=== PATIENT | female | born 1985 | race African-American/Black ===

== ENCOUNTER 2024-10-20 11:56 | Outpatient (REF) | payer OTHER, SELFPAY ==
[2024-10-20 13:12] LABS: MANUAL DIFF FLAG NO
[2024-10-20 13:16] LABS: Basophils Percent Auto 0.6 % (0-2); Eosinophils Absolute Auto 0.1 X10*3/uL (0.0-0.4); Eosinophils Percent Auto 1.1 % (0-4); Hematocrit 37.7 % (37.0-47.0); Hemoglobin 12.1 g/dl (12.0-16.0); Lymphocytes Absolute Auto 2.3 X10*3/uL (1.2-4.9); Lymphocytes Percent Auto 44.3 % (20-40); Mean Corpuscular HGB Conc 32.1 g/dl (31.0-35.0); Mean Corpuscular Hemoglobin 28.7 pg (27.0-33.0); Mean Corpuscular Volume 89.5 fL (80.0-98.0); Mean Platelet Volume 9.3 fL (9.4-12.3); Monocytes Absolute Auto 0.5 X10*3/uL (0.1-1.2); Monocytes Percent Auto 8.7 % (2-11); Neutrophils Absolute Auto 2.4 x10*3/uL (2.0-8.3); Neutrophils Percent Auto 45.3 % (45-73); Platelet Count 315 X10*3/uL (160-400); Red Blood Count 4.21 X10*6/uL (4.20-5.50); Red Cell Distribution Width 13.8 % (11.0-16.0); White Blood Count 5.3 X10*3/uL (4.8-10.8)
[2024-10-20 13:21] LABS: Estimated Average Glucose 103 mg/dL; Hemoglobin A1c % 5.2 % (<6.0)
[2024-10-20 13:36] LABS: Alanine Aminotransferase 14 U/L (0-31); Albumin Level 4.1 g/dL (3.5-5.0); Alkaline Phosphatase 50 U/L (39-117); Anion Gap 11 (12-20); Aspartate Amino Transferase 30 U/L (5-31); Bilirubin Total 0.3 mg/dL (0.0-1.0); Blood Urea Nitrogen 7 mg/dL (9-16); Calcium 8.9 mg/dL (8.4-10.2); Carbon Dioxide 27 mmol/L (22-29); Chloride 105 mmol/L (96-108); Cholesterol 165 mg/dL (<200); Estimated Glomerular Filt Rate > 60; Glucose Random 83 mg/dL (60-115); HDL Cholesterol 48 mg/dL (>40); LDL Cholesterol Calculated 102 mg/dL (<100); Potassium 4.2 mmol/L (3.3-5.1); Sodium 139 mmol/L (135-145); Total Protein 7.5 g/dL (6.5-8.0); Triglycerides 76 mg/dL (<150)
--- OUTSIDE RECORDS SUMMARY | 2024-10-20 13:39 | XMS_ITS | Clinical Summary ---
Author Organization [employer] Address [address] [place] [address] Care Team Providers Care Line Server Name Role Phone Unavailable Primary Care Provider Unavailabl e Allergies No known active allergies Medications loratadine (CLARITIN) 10 mg tabletIndicatio ns:Allergic Rhinitis Take 10 mg by mouth as needed for allergies (allergic rhinitis) Indications: inflammation of the nose due to an allergy Active Active Problems Problem Noted Date Diagnosed Date with 30 completed weeks gestation 10/2021 Overview (11/08/2021): Supervision of Normal O = ordered, X = completed, / = N/A Late transfer of care from [facility] [x] Intake labs reviewed by: Date: Rh status: (add to problem list if negative) Missing labs: Abnormal labs: [x] Intake BMI: (add to problem list if >=30) [x] PAP - as per outside records [o] Anatomy Scan [x] 2 hour GTT (24-28wks) at outside clinic [x] Tdap vaccination (27-36wks) [x] 3rd trimester (28-32 weeks) CBC, HIV, RPR, GC/CT [ ] Kick counts / PTB counseling (28-32wks) [ ] WIC referral provided [ ] GBS (36wks) [ ] GBS Bacteriuria [ ] PCN allergic [Y/N] [o] Presentation Check/Growth US (34-36wk) [ ] Feeding: [ ] breast pump script [ ] control counseling [ ] Method selected: If desires BTL: [ ] [place] consent signed (28-32wks) [x] Delivery Plan: vaginal delivery [ ] Testing (if indicated) Assessment & Plan (11/08/2021 5:51 PM EDT): Labor precautions given. Labs reviewed. Tdap given. CBC, T&S, HIV, HepBs Ag, HepC Ab, COVID Ab labs ordered. Anatomy scan ordered. BCM discussed and patient is considering OCPs vs IUD, however concerned about IUD given hx of recurrent yeast infections. Patient reports hx of abnormal pap smears. Refer to separate problem. Obesity with body mass index (BMI) of 35.0 to 39.9 without comorbidity 11/08/2021 Vaginal yeast infection 11/08/2021 Overview (11/08/2021): Patient reports hx of recurrent maxine infections. Currently taking clotrimazole PO, which relieves symptoms for about 1 month. Patient reports this is well- controlled prior to past and symptoms are tolerable. F/u symptoms next visit. Abnormal Pap smear of cervix 11/08/2021 Overview (11/08/2021): Prior hx of abnormal pap (<1yr) that resulted ASCUS, other HPV pos. F/u colposcopy negative. Most recent pap pap 09/14/21, ASCUS, other HPV pos. Given ASCCP guidelines, 1 year f/u (due 09/2022). Assessment & Plan (11/08/2021 5:57 PM EDT): Prior hx of abnormal pap (<1yr) that resulted ASCUS, other HPV pos. F/u colposcopy negative. Most recent pap pap 09/14/21, ASCUS, other HPV pos. Given ASCCP guidelines, 1 year f/u (due 09/2022). Immunizations Immunization Administration Dates Next Due Flulaval,Fluarix,Fluzone Miguel d 6mons+ Preserv Free 02/18/2023,04/09/2022,02/06/2021 Tdap 11/08/2021 Social History Tobacco Use Types Packs/Day Years Used Date Smoking Tobacco: Never Assessed Food Insecurity Answer Date Recorded In the last 12 months, did y ou worry that your food could run out before you got money to buy more? No 11/08/2021 Transportation Answer Date Recorded In the last 3 months, has la ck of transportation kept you from medical appointments or getting your medications? No 10/2021 Legal Answer Date Recorded Do you need legal help? (chi ld/family services, immigration, housing discrimination, domestic issues, etc)? No 022 Violence Answer Date Recorded Does anyone in your life shanta t you, threaten you, frighten you or make you feel unsafe? No 11/08/2021 Caring for Others Answer Date Recorded Do you need help getting chi ld care or care for an elderly or sick adult? No 11/08/2021 Financial Resource Strain Answer Date R ecorded In the last 3 months, did yo u have to skip buying medications or going to doctor's appointments to save money? No 11/09/19 22 Utilities Answer Date Recorded In the last 3 months, has th e [employer], gas, oil or water company threatened to shut off services to your home? No 11/08/2021 Housing Stability Answer Date Recorded Are you worried that in the next 2 months, you may not have a safe or stable place to live? (eviction, being kicked out, homelessness) No 11/08/2021 Housing Adequacy Answer Date Recorded Are you worried that the lalit ce you are living now is making you sick? (has mold, bugs/rodents, water leaks, not enough heat) No 11/08/2021 Comments No Sex and Gender Information Value Date Recorded Sex Assigned at Female 07/03/2023 12:13 PM EST Legal Sex Female 1:04 PM EDT Gender Identity Female 07/03/2023 12:13 PM EST Sexual Orientation Straight 07/03/2023 12 :13 PM EST Last Filed Vital Signs Vital Sign Reading Time Taken Comments Blood Pressure 123/68 11/08/2021 1:27 PM EDT Pulse 93 11/08/2021 1:27 PM EDT Temperature 37 ??C (98.6 ??F) 11/08/2021 1:27 PM EDT Respiratory Rate - - Oxygen Saturation 100% 11/08/2021 1:27 PM EDT Inhaled Oxygen Concentration - - Weight 108 kg (238 lb) 09/02/2023 8:50 AM EDT Height 175.3 cm (5' 9 ) 09/02/2023 8:50 AM EDT Body Mass Index 35.15 09/02/2023 8:50 AM EDT Plan of Treatment Health Maintenance Due Date Last Done Comments Advance Directive Discussion 2005 Hepatitis B Vaccines (1 of 3 - 19+ 3-dose series) 2006 PAP SMEAR 2008 COVID-19 Vaccine (4 - season) 2024 02/01/2021, 05/13/2020, 04/22/2020 Influenza Vaccine (#1) 2024 3, 04/09/2022, 02/06/2021, Additional history exists DTaP/Tdap/Td Vaccines (2 - Td or Tdap) 11/09/2031 11/08/2021 Zoster Vaccine (1 of 2) 2037 HPV Vaccines Completed 05/21/2019, 10/04, 09/03/2018 HIB Vaccines Aged Out No longer eligi ble based on patient's age to complete this topic Hepatitis A Vaccines Aged Out No long er eligible based on patient's age to complete this topic IPV/Polio Vaccines Aged Out No longer eligible based on patient's age to complete this topic Meningococcal Vaccine Aged Out No erwin darlene eligible based on patient's age to complete this topic Pneumococcal Vaccine Age 0-49 Aged Out No longer eligible based on patient's age to complete this topic
[2024-10-20 13:52] LABS: HCG Quantitative < 2 mIU/mL; Vitamin D 25-OH Total 40.9 ng/mL (>30)
== END 2024-10-20 11:57 | disposition home or self-care (01) ==
LOC: HO.10HDL 11:56
PROVIDERS: Visit Provider Student in an Organized Health Care Education/Training Program
DX: O99.011 Anemia complicating pregnancy, first trimester (principal); D64.9 Anemia, unspecified; O09.521 Supervision of elderly multigravida, first trimester; Z3A.00 Weeks of gestation of pregnancy not specified; Z13.1 Encounter for screening for diabetes mellitus; Z13.220 Encounter for screening for lipoid disorders
CPT/HCPCS: 36415; 80053; 80061; 82306; 83036; 84702; 85025

== ENCOUNTER 2024-11-18 08:30 | Outpatient (REF) | payer OTHER, SELFPAY ==
--- NOTE | ~2024-11-18 | XR_ITS ---
EXAMINATION: XR SACROILIAC JOINTS CLINICAL INFORMATION: M54.50 - Low back pain, unspecified COMPARISON: None available. TECHNIQUE: AP and oblique views sacroiliac joints. FINDINGS: No acute cortical disruption. No lytic or blastic lesions. XR/XR sacroiliac joint 1-2V IMPRESSION: Normal x-ray. Electronically signed by: John Whittaker MD 11/18/2024 09:10 AM EDT
--- NOTE | ~2024-11-18 | XR_ITS ---
EXAMINATION: XR LUMBOSACRAL SPINE CLINICAL INFORMATION: M54.50 - Low back pain, unspecified COMPARISON: None available. TECHNIQUE: AP and lateral views. FINDINGS: No acute cortical disruption or malalignment. Small marginal osteophyte formation and endplate sclerosis at L4-5 and L5-S1. No lytic or blastic lesions Questionable calcifications overlapping the kidney shadows. XR/XR lumbar spine 2-3V IMPRESSION: Spondylosis L4-5 and L5-S1, mild. Electronically signed by: John Whittaker MD 11/18/2024 09:09 AM EDT
--- OUTSIDE RECORDS SUMMARY | 2024-11-18 08:35 | XMS_ITS | Clinical Summary ---
Author Organization [employer] Address [address] [place] [address] Care Team Providers Care Telesales Agent Name Role Phone Unavailable Primary Care Provider [...] = N/A Late transfer of care from [facility] [x] Intake labs reviewed by: Date: Rh [...] the last 3 months, has th e [employer], gas, oil or water company threatened to [...] 93 11/08/2021 1:27 PM EDT Temperature 37 C (98.6 F) 11/08/2021 1:27 PM EDT Respiratory Rate - [...] series) 2006 PAP SMEAR 2008 COVID-19 Vaccine ( - season) 2024 02/01/2021, 05/13/2020, 04/22/2020 Influenza Vaccine (Season Ended) 2025 02/18/2023, 04/09/2022, 02/06/2021, Additional history exists DTaP/Tdap/Td Vaccines [...]
== END 2024-11-18 08:31 | disposition home or self-care (01) ==
LOC: HO.XRAY 08:30
PROVIDERS: Visit Provider Student in an Organized Health Care Education/Training Program
DX: M54.50 Low back pain, unspecified (principal)
CPT/HCPCS: 72100; 72200

== ENCOUNTER → 2024-11-18 08:33 | Outpatient (BNV) | payer OTHER, SELFPAY | PROVIDERS: Visit Provider Radiology Diagnostic Radiology | DX: M47.816 Spondylosis without myelopathy or radiculopathy, lumbar region (principal); M54.50 Low back pain, unspecified | CPT/HCPCS: 72100; 72200 ==

== ENCOUNTER 2024-11-23 08:34 | Emergency (ER) | payer OTHER, SELFPAY ==
[2024-11-23 08:59] VITALS: BP 110/79; PULSE 65; RESP 18; TEMP 36.8; O2SAT 99; BMI 36.9
--- OUTSIDE RECORDS SUMMARY | 2024-11-23 09:00 | XMS_ITS | Clinical Summary ---
Author Organization [employer] Address [address] [place] [address] Care Team Providers Care Website Optimization Strategist Name Role Phone Unavailable Primary Care Provider [...] = N/A Late transfer of care from [facility] [x] Intake labs reviewed by: Date: Rh [...] the last 3 months, has th e [employer], gas, oil or water company threatened to [...] 2024 02/01/2021, 05/13/2020, 04/22/2020 Influenza Vaccine (#1) 2025 3, 04/09/2022, 02/06/2021, Additional history exists DTaP/Tdap/Td [...]
--- OUTSIDE RECORDS SUMMARY | 2024-11-23 09:00 | XMS_ITS | Encounter Summary ---
Author Organization [facility] Address [address] [place] [address] Care Team Providers Care Molecular Spectroscopist Name Role Phone Marychuy Soto MD Primary Care Provider [phone] Encounter Details Date Type Department Care Team (Late st Contact Info) Description 10/10/2021 Scanned Documents [facility] Physician [facility] External Scan [address] [place] [id number] Scanned, Document Social History Tobacco Use Types Packs/Day Years Used Date Smoking Tobacco: Never Smokeless Tobacco: Never Snuff Alcohol Use Standard Drinks/Week Comments Yes 0 (1 standard drink = 0.6 oz pur e alcohol) social Comments Yes Sex and Gender Information Value Date Recorded Sex Assigned at Female 11/04/2019 3:46 PM EDT Legal Sex Female 7:59 AM EDT Gender Identity Female 11/04/2019 3:46 PM EDT Sexual Orientation Straight or Heterosexual 06/06 10:06 AM EST documented as of this encounter Plan of Treatment Not on file documented as of this encounter Procedures Procedure Name Priority Date/Time Associated Diagnosis Comments M BASIC ULTRASOUND STUDIES 10/10/2021 9:31 AM EDT documented in this encounter Results * M BASIC ULTRASOUND STUDIES (10/10/2021 9:31 AM EDT) us Document Scanned OB R4 US ORDERABLES Final Resul t documented in this encounter Visit Diagnoses Not on filedocumented in this encounter Additional Health Concerns Infection Onset Date Last Indicated Resolved Time Covid-19 Screening 01/14/2022 01/14/2022 12:14 AM EDT documented as of this encounter Care Teams Molecular Spectroscopist Relationship Specialty Start Date End Date Marychuy Soto MD [address] [place] [id number] PCP - General Internal Medicine 03/14/20 documented as of this encounter
[2024-11-23 09:03] VITALS: BP 110/79; PULSE 65; RESP 18; TEMP 36.8; O2SAT 99
--- NOTE | 2024-11-23 09:30 | ED.BACK ---
HPI - Back Pain/Injury General Chief Complaint: Weakness Stated Complaint: Back pain with weakness on both leg Time Seen by Provider: 11/23/24 09:07 Source: patient Mode of arrival: ambulatory Limitations: no limitations History of Present Illness ED Provider: Karey Bey PA-C HPI Narrative: Patient presents to the emergency department today for evaluation of low back pain. Past medical history significant for subjective nontraumatic back pain intermittently. Patient states in the past she has just woken up his back pain it only lasted for a few days and resolved on itself however over these last 2 weeks it has not. She reports just waking up 1 day and feeling pain in her right low back side. It was a dull onset which was only really worse when waking up in the morning and when changing positions but now it feels like it is mixed all day. It is especially worse after lying down and getting up in the morning when sitting for too long and with changing positions. It feels best when she walks and does gentle stretching. She denies any falls or trauma.Patient denies personal history of cancer, IVDU, fevers, chills, night sweats, unintentional wt loss, saddle anesthesia, and change/loss in bladder/ bowel function. Patient treated this with Tylenol and Motrin and heat which helped at 1st however over the last several days the quality of the pain has changed she reports feeling some weakness in her right lower extremity for the last 2 days in her L5 distribution. 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 She is denying any urinary symptoms and colicky pain or abdominal discomfort no nausea no vomiting no fevers no chills. Her legs have not given out on her in any way. Patient has a history of piriformis on her left side in the past. 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 Patient states that she spent several times the day during the day doing the stretches but it only felt like it made it worse. She is denying any change in sensation. She sought medical attention at the ED today for concern of potential neurovascular compromise. She has already had an outpatient L-spine which was unremarkable. MD elicited complaint: back pain Related Data Allergies Allergy/AdvReac Type Severity Reaction Status Date / Time No Known Allergies Allergy Verified 11/23/24 09:02 Review of Systems Review of Systems: Yes all other systems are reviewed and are negative [facility] Past Medical History Attestation statement: The following information was validated with the patient. Source: old records reviewed, nursing notes reviewed and other (Reviewed outpatient SI joint and lumbar spine x-ray from 11/18/2024) Social History Social History Alcohol intake: current Smoked in Last 30 Days: No Use of substances other than those prescribed or required for medical reasons: No Advance Directives: No Advance Directives Information Provided: Yes Do you have a plan to hurt others: No Plan Patient : No Physical Exam Exam: Exam: General: Appears in no acute distress, appears well nourished body habitus is obese, appears stated age. No septic or ill-appearing. Vitals reviewed normal, PMH/Social and Surgical hx reviewed including allergies and current medications. - reviewed for prior visits here Head: Normocephalic, no obvious trauma or skin lesions noted. Eyes: EOMI ENMT: moist oral mucosa Neck: trachea midline Cardiovascular: peripheral perfusion normal, Regular heart rate regular rhythm Respiratory: no respiratory distress nontender chest wall Abdomen: nondistended Extremities: warm and moving without difficulty Psych: Cooperative MS: Negative straight leg raise bilaterally sensation fully intact strength is 4+ throughout no sciatic notch or GT tenderness bilaterally. Right lumbar paraspinous region mildly tender to palpation especially in the L4 region but no step-offs deformities of the entire spine are otherwise midline tenderness. Range of motion is limited of the lumbar spine. Extension is approximately 5 degrees lumbar flexion is full but pain with going from a flexed or extended position especially when she is at the 30 degree judith of flexion, both trunk rotation as well as lumbar lateral flexion limited both ways to only 10 degrees reproducing pain in the right lumbar paraspinous region, DTRs fully intact compartments are soft cap refill less than 3 seconds. Pulses 2+ Neuro: Alert and oriented. Vital Signs: Vital Signs: Last Vital Signs Temp 98.3 F 11/23/24 09:03 Pulse 65 11/23/24 09:03 Resp 18 11/23/24 09:03 BP 110/79 11/23/24 09:03 Pulse Ox 99 11/23/24 09:03 O2 Del Method Room Air 11/23/24 09:03 BMI result Body Mass Index 36.9 Medical Decision Making Medical Decision Making MDM Narrative: Patient presented to the emergency department today for concerns of back pain. history and physical as above vitals noted This patient presents with back pain most consistent with lumbar strain. Differential diagnoses includes lumbago versus musculoskeletal spasm / strain versus sciatica vs HNP vs piriformis syndrome. No back pain red flags on history or physical. Presentation not consistent with malignancy (lack of history of malignancy, lack of B symptoms), fracture (no trauma, no bony tenderness to palpation), cauda equina (no bowel or urinary incontinence/retention, no saddle anesthesia, no distal weakness), AAA, viscus perforation , pulmonary embolism, renal colic, pyelonephritis (afebrile, no CVAT, no urinary symptoms). Given the clinical picture, no indication for imaging at this time especially in the setting that she recently already had an outpatient L-spine with no significant findings Plan: pain control, supportive care and ortho follow up as indicated Differential Diagnosis Differential Diagnoses: The differential diagnosis associated with the presentation includes See MDM Admission/Observation Consideration of admission/observation: Escalation of care including admission/observation considered Patient would have been admitted to the hospital had her work up had any findings where hospital admission was appropriate and her clinical presentation warranted hospital admission. External Record Review External record reviewed: Prior outpatient radiology On 11/18/2024 5 days ago patient had x-rays of her sacroiliac joint in her lumbar spine which was part of [employer] records: Si joint: FINDINGS: No acute cortical disruption. No lytic or blastic lesions. L- spine: IMPRESSION: Spondylosis L4-5 and L5-S1, mild. Tests considered The following testing was considered but not selected: Would have considered MRI of the spine had there been any concern for neurovascular compromise today Prescription Management I considered prescription management with: Pain Medication Patient declined analgesic and muscle relaxant Discharge Plan Discharge Clinical Impression: Lumbosacral strain Qualifiers: Encounter type: initial encounter Qualified Code(s): S39.012A - Strain of muscle, fascia and tendon of lower back, initial encounter Patient Disposition: Home, Self-Care Instructions: Low Back Strain (ED) Additional Instructions: You were evaluated for lower back pain. Your symptoms are consistent with a lower back strain/spasm with a pinched nerve. Your history and physical is not suggestive of neurovascular compromise such as acute cord syndrome or cauda equina syndrome warranting emergent MRI. Based on your limited range of motion you would benefit from formal physical therapy you stated you have access to get this for yourself I do recommend following up with Orthopedics should you not improve or plateau with your functional improvement. BACK CARE Use Motrin/Advil (ibuprofen) 600 mg every 6 hours. Take this with food. Take this regularly for the next 3-5 days and then as needed. In addition, You can use Tylenol (acetaminophen) 650 mg every 6 hrs as needed for pain. ?Do not take more than 3000 mg in one day! Use intermittent heat 4 or 5 times a day, 20 minutes at a time, ?for a few days. You may use topical therapy such as IcyHot with Lidocaine or Aspercream with Lidocaine, both of which are available over the counter. Do not perform any heavy lifting. Return to the Emergency Department if you develop any increased or uncontrolled pain, numbness, tingling, or weakness of the extremities, difficulty urinating or passing stools. Please see your doctor or an orthopedist if not improving over the next 1-2 weeks. Referrals: [facility] [Provider Group] Referral Note: lumbar strain with decreased ROM, no back pain red flags Print Language: Citizen Of [place]
[2024-11-23 09:49] VITALS: BP 110/79; PULSE 65; RESP 18; TEMP 36.8; O2SAT 99
[2024-11-23 10:12] VITALS: BP 110/79; PULSE 65; RESP 18; TEMP 36.8; O2SAT 99
== END 2024-11-23 10:13 | disposition home or self-care (01) ==
PROVIDERS: Emergency Provider Emergency Medicine
DX: S39.012A Strain of muscle, fascia and tendon of lower back, initial encounter (principal); X50.1XXA Overexertion from prolonged static or awkward postures, initial encounter; Y93.84 Activity, sleeping; Y92.013 Bedroom of single-family (private) house as the place of occurrence of the external cause; Y99.9 Unspecified external cause status
CPT/HCPCS: 99283; 99284

== ENCOUNTER 2025-01-01 11:03 | Outpatient (AMB) | payer OTHER, SELFPAY ==
--- NOTE | 2025-01-01 11:05 | A.OFFVIS_ITS ---
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 Patient was referred by [facility] 11/23/24 and was referred to physical therapy. Patient had an X ray done on 11/18/24. At today's visit she states that she has a history of back pain since 2018, but on November 18 was the first time that the pain radiated down the right leg. Patient states that she has tried physical therapy but felt that it did not give any relief only made the pain increase. She added that recently she has noticed that the right knee pain has been increasing, she noted that in 2021 she had mild tear in the right knee. 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 She had a similar episode in 2018, but on the left side. Diagnosed back then with left piriformis syndrome, which improved with physical therapy. She works full-time. She has a 3-year-old daughter. She drives long distance to [place] on the weekends. She tries to be active, runs in the morning on treadmill and does her stretches and work out. Not sure how it happened, but started having pain in November, right lower back/buttocks. Tried some home exercises that made it worse. Tried Tylenol and ibuprofen. At some point it started getting more severe radiating down the right leg, and she had to go to the emergency room. Since then, that severe pain has improved. She denies anymore radiation to the leg. Denies any numbness or weakness to the leg. She has been going to physical therapy which has been helping. They have been working on her piriformis and quadratus lumborum. She denies any bladder or bowel changes. Denies any past medical history. Because of compensation, she has been aggravating right knee which had a previous injury to the lateral meniscus trigger years ago. The right knee as not swelled up. Although it is painful especially with flexion. 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 Patient was appropriately conversant and oriented. Good historian. MSK: No specific abnormalities found on inspection of the spine and all extremities. No pain with palpation over the lumbar area. No tenderness over spinous processes, facets or paraspinals. She does have tenderness over bilateral SI joints, right worse than left. Tender on right piriformis. Lumbar ROM was full. Bilateral hip, knee and ankle ROM WNL. No ligamentous laxity or crepitance. No increased effusion. Straight-leg raising test negative. FABERE test bilateral positive, contributing to right buttocks pain. Gillet test show stiffness of SI joints bilateral. Jason test is negative. Piriformis test is positive right side. Scour test is negative. Strength is 5/5 in all muscle groups tested. No increased tone noted. There is some crepitus in right knee. No effusion. No redness, warmth or tenderness to touch. She did indicate that when she does have pain it would be more in the lateral aspect. Good patellar movement. Negative patellar grind test. Neurological: Neurologic examination of the upper and lower extremities was nonfocal with intact sensation, muscle stretch reflexes and without focal motor deficits . Babinski was down going bilaterally. Clonus was negative. Gait is non-antalgic without loss of balance. Vital Signs: BMI result Body Mass Index 34.6 Results Reviewed Results Reviewed: I independently reviewed the results of the following: Lumbar x-rays showed preserved disc spaces in my opinion. Did have minimal endplate spurs. Notable loss of lordosis. Ordering Physician: Brittany Joshi MD Date of Service: 11/18/24 Procedure(s): XR lumbar spine 2-3V Accession Number(s): [id number] cc: Brittany Joshi MD~ EXAMINATION: XR LUMBOSACRAL SPINE CLINICAL INFORMATION: M54.50 - Low back pain, unspecified COMPARISON: None available. TECHNIQUE: AP and lateral views. FINDINGS: No acute cortical disruption or malalignment. Small marginal osteophyte formation and endplate sclerosis at L4-5 and L5-S1. No lytic or blastic lesions Questionable calcifications overlapping the kidney shadows. XR/XR lumbar spine 2-3V IMPRESSION: Spondylosis L4-5 and L5-S1, mild. Electronically signed by: John Whittaker MD 11/18/2024 09:09 AM EDT RP Ordering Physician: Brittany Joshi MD Date of Service: 11/18/24 Procedure(s): XR sacroiliac joint 1-2V Accession Number(s): [id number] cc: Brittany Joshi MD~ EXAMINATION: XR SACROILIAC JOINTS CLINICAL INFORMATION: M54.50 - Low back pain, unspecified COMPARISON: None available. TECHNIQUE: AP and oblique views sacroiliac joints. FINDINGS: No acute cortical disruption. No lytic or blastic lesions. XR/XR sacroiliac joint 1-2V IMPRESSION: Normal x-ray. Electronically signed by: John Whittaker MD 11/18/2024 09:10 AM EDT RP Assessment & Plan Assessment & Plan (1) Sacroiliac joint dysfunction of both sides: Code(s): M53.3 - Sacrococcygeal disorders, not elsewhere classified Category: Medical (2) Piriformis syndrome of right side: Code(s): G57.01 - Lesion of sciatic nerve, right lower limb Category: Medical (3) History of tear of meniscus of knee joint: Code(s): Z87.828 - Personal history of other (healed) physical injury and trauma Category: Medical Plan Suspect pain is from bilateral SI joint dysfunction. Exam shows stiffness in both sides. She also has right piriformis syndrome as well. No signs of lumbar radiculopathy or myelopathy. We talked about continued physical therapy for SI joint, especially for realignment. I taught her some maneuvers to realign SI joint. We talked about precautions and change in mechanics to avoid exacerbation. If it returns severely, we could consider referral to pain management for steroid injection of the SI joint. No signs of lumbar radiculopathy. No indication for lumbar MRI at this time, but we will continue to monitor if she will redevelop right leg pain. Does not appear to have acute injury on right knee. We will continue to monitor this. Assessment and plan discussed with patient, and patient was agreeable. All questions were answered thoroughly. Giuliana Stringer MD, [place] Board Certified, [place] Board [employer] Physical [employer] and Rehabilitation (ABPMR) Board Certified, [place] Board of Electrodiagnostic Medicine (ABEM) Coding Level of Care Code New Pt Level 4 (13609) Diagnoses Sacroiliac joint dysfunction of both sides M53.3 Piriformis syndrome of right side G57.01 History of tear of meniscus of knee joint Z87.828
[2025-01-01 11:12] VITALS: BMI 34.6
--- OUTSIDE RECORDS SUMMARY | 2025-01-01 11:48 | XMS_ITS | Patient Health Record ---
Author Organization [facility] Address [address] [place] [address] Care Team Providers Care Electroencephalographic Technologist Name Role Phone Beth Tapia Unavailable [phone] Reason For Referral No Information Medications Medication SIG (Take, Route, Fr equency, Duration) Notes Start Date End Date Status MetroGel-Vaginal 1 applicatorful at b edtime 0.75 % Vaginal Once a day 11/17/2018 Active Social History Social History Additional Details Category Social Info Options Details Migrated Social History Migrated Social History Migrated Social History: Single, Monogamous Household: Household:: No Tobacco Use: Tobacco Use:: No Plan Of Treatment Pending Test Test Name Order Date TRICHOMONAS VAGINALIS -(43670) 9 CT/GC - 25357 10/29/2018 Medical (General) History Medical History History ICD Code allergies 11/18/2018 Alcohol: No 11/18/2018 Drug Use: No 11/18/2018 Loratadine
--- OUTSIDE RECORDS SUMMARY | 2025-01-01 11:48 | XMS_ITS | Encounter Summary ---
Author Organization [facility] Address [address] [place] [address] Care Team Providers Care Automotive Service Consultant Name Role Phone Marychuy Soto MD Primary Care Provider [phone] Encounter Details Date Type Department Care Team (Late st Contact Info) Description 10/10/2021 Scanned Documents [facility] Physician [facility] External Scan [address] [place] [id number] Scanned, Document Social History Tobacco Use Types [...] documented as of this encounter Care Teams Automotive Service Consultant Relationship Specialty Start Date End Date Marychuy Soto MD [address] [place] [id number] PCP - General Internal Medicine 03/14/20 documented as of this encounter
--- OUTSIDE RECORDS SUMMARY | 2025-01-01 11:48 | XMS_ITS | Encounter Summary ---
Author Organization [facility] Address [address] [place] [address] Care Team Providers Care Lining Stamper Name Role Phone Marychuy Soto MD Primary Care Provider [phone] Encounter Details Date Type Department Care Team (Late st Contact Info) Description 08/22/2021 Scanned Documents [facility] Physician [facility] External Scan [address] [place] [phone] Scanned, Document Social History Tobacco Use Types [...] on file documented as of this encounter Visit Diagnoses Not on filedocumented in this encounter Additional Health Concerns Infection Onset Date Last Indicated Resolved Time Covid-19 Screening 01/14/2022 01/14/2022 2 12:14 AM EDT documented as of this encounter Care Teams Lining Stamper Relationship Specialty Start Date End Date Marychuy Soto MD [address] [place] [phone] PCP - General Internal Medicine 03/14/20 documented as of this encounter
--- OUTSIDE RECORDS SUMMARY | 2025-01-01 11:48 | XMS_ITS | Encounter Summary ---
Author Organization [facility] Address [address] [place] [address] Care Team Providers Care Rough And Truing Machine Operator Name Role Phone Marychuy Soto MD Primary Care Provider Encounter Details Date Type Department Care Team (Late st Contact Info) Description 01/11/2022 Scanned Documents [facility] Physician [facility] External Scan [address] [place] [phone] Scanned, Document Social History Tobacco Use Types [...] documented as of this encounter Care Teams Rough And Truing Machine Operator Relationship Specialty Start Date End Date Marychuy Soto MD [address] [place] [id number] PCP - General Internal Medicine 03/14/20 documented as of this encounter
--- OUTSIDE RECORDS SUMMARY | 2025-01-01 11:48 | XMS_ITS | Encounter Summary ---
Author Organization [facility] Address [address] [place] [address] Care Team Providers Care Bundle Collector Name Role Phone Marychuy Soto MD Primary Care Provider [phone] Encounter Details Date Type Department Care Team (Late st Contact Info) Description 08/04/2021 Scanned Documents [facility] Physician [facility] External Scan [address] [place] [phone] Scanned, Document Social History Tobacco Use Types [...] documented as of this encounter Care Teams Bundle Collector Relationship Specialty Start Date End Date Marychuy Soto MD [address] [place] [phone] PCP - General Internal Medicine 03/14/20 documented as of this encounter
--- OUTSIDE RECORDS SUMMARY | 2025-01-01 11:48 | XMS_ITS | Clinical Summary ---
Author Organization [facility] Address [address] [place] [address] Care Team Providers Care Manager Photo Name Role Phone Marychuy Soto MD Primary Care Provider [phone] Allergies Active Allergy Reactions Criticality Noted Date Comments No Known Allergies 01/15/2022 Other 06/25/2019 seasonal allergies Medications * This document contains information received from the source organization and may not represent a complete record from that organization. Multiple Vitamin (MULTIVITAMINS PO) by mouth Active amoxicillin-clav ulanate (AUGMENTIN) 875-125 MG per tabletIndication s:Dysuria Take 1 Tablet by mouth 2 times daily for 7 days 14 Tablet 01/30/2022 Active Active Problems Problem Noted Date Diagnosed Date Vaginal delivery 01/15/2022 Term 01/14/2022 ASCUS with positive high risk HPV cervical 07/19 Resolved Problems Problem Noted Date Diagnosed Date Resolved Date Vaginitis and vulvovaginitis 11/29/2020 07/25/2023 Vaginal discharge 11/29/2020 07/25/2023 Immunizations Immunization Administration Dates Next Due HPV 05/21/2019 HPV, 9 10/15/2018,09/03/2018 Influenza (Intradermal) 02/08/2020,02/13/2019 SARS-COV-2 Vaccine Multi-Dose Pfizer 02/01/2021, 05/13/2020,04/22/2020 Family History Medical History Relation Name Comments Fibroids Maternal Aunt Fibroids Maternal Grandmother No Known Medical Problems Natural Brother High Blood Pressure Natural Father Fibroids Natural Mother High Blood Pressure Natural Mother Thyroid Cancer Natural Mother No Known Medical Problems Natural Sister Colon Cancer Paternal Aunt Colon Cancer Paternal Grandfather Relation Name Status Comments Maternal Aunt Maternal Grandmother Natural Brother Alive Natural Father Alive Natural Mother Alive had thyroid c ancer, she is doing good now. Natural Sister Alive Other christiano descen t Paternal Aunt Paternal Grandfather Social History Tobacco Use Types Packs/Day Years Used Date Smoking Tobacco: Never Smokeless Tobacco: Never Snuff Tobacco Cessation:Counseling Given: Not Answered Alcohol Use Standard Drinks/Week Comments Yes 0 (1 standard drink = 0.6 oz pur e alcohol) social Health Literacy Answer Date Recorded Do you ever need help readin g or understanding your medical information? No 07/25/2023 Health Literacy Assistance Not on file 07/24 Access to Care Answer Date Recorded In the past year have you or any family members you live with been unable to get medical or health care when it was really needed? No 07/25/2023 Access to Care Assistance Not on file 2023 Risk to Personal Safety Answer Date Rec orded Do you feel physically safe where you currently live? Yes 07/25/2023 Do you feel emotionally safe where you currently live? Yes 07/25/2023 Risk to Personal Safety Physicial Assistance Not on file 07/25/2023 Risk to Personal Safety Emotional Assistance Not on file 07/25/2023 Social Connections Answer Date Recorded In the last 12 months, were you satisfied with the amount of time you were able to connect with family, friends, or neighbors? Yes 07/25/2023 Social Connections Assistance Not on file Financial Resource Strain Answer Date R ecorded In the past 12 months has e electric, gas, oil, or water company threatened to shut off services in your home? No 07/25/2023 Financial Resource Strain Assistance Not on file 07/25/2023 Food Insecurity Answer Date Recorded In the last 12 months, did y ou ever eat less than you felt you should because there wasn't enough money for food? Never true 07/25/2023 Food Insecurity Assistance Not on file 07/24 Transportation Needs Answer Date Record ed Do you put off or neglect go ing to the doctor because of distance or transportation? No 07/25/2023 Transportation Needs Assistance Not on file 07/25/2023 Housing Stability Answer Date Recorded Are you worried or concerned that in the next two months you may not have stable housing that you own, rent, or stay in as a part of a household? No 07/25/2023 Housing Stability Assistance Not on file Comments No Sex and Gender Information Value Date Recorded Sex Assigned at Female 11/04/2019 3:46 PM EDT Legal Sex Female 7:59 AM EDT Gender Identity Female 11/04/2019 3:46 PM EDT Sexual Orientation Straight or Heterosexual 06/06 10:06 AM EST Last Filed Vital Signs Vital Sign Reading Time Taken Comments Blood Pressure 124/70 07/25/2023 1:49 PM EDT Pulse 74 07/25/2023 1:49 PM EDT Temperature 36.8 C (98.2 F) 07/25/2023 1:49 PM EDT Respiratory Rate 18 01/16/2022 3:17 PM EDT Oxygen Saturation 95% 07/25/2023 1:49 PM EDT Inhaled Oxygen Concentration - - Weight 106.1 kg (234 lb) 07/25/2023 1:49 PM EDT Height 175.3 cm (5' 9 ) 07/25/2023 1:49 PM EDT Body Mass Index 34.56 07/25/2023 1:49 PM EDT Plan of Treatment Health Maintenance Due Date Last Done Comments Depression Screening 10/25/2023 07/25/2023, 06/15/2022, 03/02/2022, Additional history exists COVID-19 Vaccine ( season) 2024 02/01/2021, 05/13/2020, 04/22/2020 Annual Physical Exam 07/24/2024 07/25/2023, 07/25/2023, 03/08/2021, Additional history exists Flu Vaccine (#1) 01/04/2025 03/11/2023, , 04/09/2022, Additional history exists Cervical Cancer Screening 07/24/20262023, 04/03/2022, 09/14/2021, Additional history exists Tetanus / Tdap Shot 11/09/2031 11/08/2021 Zoster Vaccines (1 of 2) 2037 Hepatitis C Antibody Screen Completed 01/10/2021 Pneumococcal Vaccine: Pediatrics (0 to 5 Years) and At-Risk Patients (6 to 64 Years) Aged Out No longer eligible based on patient's age to complete this topic Procedures Procedure Name Priority Date/Time Associated Diagnosis Comments LIQUID-BASED PAP + HPV PLUS Routine 07/25/2023 2:24 PM EDT Encounter for Papanicolaou smear for cervical cancer screening HEPATITIS C ANTIBODY Routine 01/10/2021 2:36 PM EDT Subacute and chronic vaginitis from Last 3 Months or Most Recently Relevant to Health Maintenance Results * Liquid based pap HPV Plus (07/25/2023 2:24 PM EDT) AFTER SCHOOL PROGRAM COORDINATOR Cytology Comment See attached report 07/30/2023 7:28 AM EDT [facility] Liquid-based preparation technique (qualifier value) (Thin prep pap) Collection / Unknown 07/25/2023 2:24 PM EDT 07/25/2023 2:25 PM EDT Marychuy Soto MD PATHOLOGY/CYTOLOGY ORDERABLES Fi nal Result [address] [id number] * Hepatitis C Antibody (01/10/2021 2:36 PM EDT) Hep C Ab Nonreactive Nonreactive 01/10/2021 7:15 PM EDT [facility] Hep C Ratio 0.15 <=0.80 RATIO 01/10/2021 7:15 PM EDT [facility] Blood Venipuncture / Unknown 01/10/2021 2:36 PM EDT 01/10/2021 2:36 PM EDT Lily Huerta APN IMMUNOLOGY ORDERABLES Griselda yu Result [facility] [address] [place] [address] from Last 3 Months or Most Recently Relevant to Health Maintenance Insurance PPO Advance Directives * Full Code (Latest Code Status on File) Date Activated Date Inactivated Comments 01/14/2022 11:17 PM 01/15/2022 9:20 AM Care Teams Manager Photo Relationship Specialty Start Date End Date Marychuy Soto MD [address] [place] [phone] PCP - General Internal Medicine 03/14/20
--- OUTSIDE RECORDS SUMMARY | 2025-01-01 11:48 | XMS_ITS | Encounter Summary ---
Author Organization [facility] Address [address] [place] [address] Care Team Providers Care Health It Specialist Name Role Phone Marychuy Soto MD Primary Care Provider Reason for Visit * Reason Onset Date Comments paragard 07/11/2020 needed update on shipment. Encounter Details Date Type Department Care Team (Late st Contact Info) Description 07/11/2020 Telephone [facility] Gynecology Maribeth Hurst [address] [place] [address] Martha Harvey MA [address] [place] [phone] paragard (needed update on shipment.) Social History Tobacco Use Types Packs/Day Years Used Date Smoking Tobacco: Never Smokeless Tobacco: Never Snuff Alcohol Use Standard Drinks/Week Comments Yes 0 (1 standard drink = 0.6 oz pur e alcohol) social Comments No Sex and Gender Information Value Date Recorded Sex Assigned at Female 11/04/2019 3:46 PM EDT Legal Sex Female 7:59 AM EDT Gender Identity Female 11/04/2019 3:46 PM EDT Sexual Orientation Straight or Heterosexual 06/06 10:06 AM EST documented as of this encounter Miscellaneous Notes * Telephone Encounter - Martha Samaniego MA - 07/11/2020 10:47 AM EST Pharmacy made aware that this is not a buy and bill. Paragard confirmed and ordered through [facility]. documented in this encounter Plan of Treatment Not on file documented as of this encounter Visit Diagnoses Not on filedocumented in this encounter Additional Health Concerns Infection Onset Date Last Indicated Resolved Time COVID-19 Rule Out 07/27/2020 07/28/2020 07/29/2020 10:49 PM EDT COVID-19 Detected 04/25/2021 04/25/2021 05/23/2021 7:18 PM EST Covid-19 Screening 01/14/2022 01/14/2022 12:14 AM EDT documented as of this encounter Care Teams Health It Specialist Relationship Specialty Start Date End Date Marychuy Soto MD [address] [place] [id number] PCP - General Internal Medicine 03/14/20 documented as of this encounter
--- OUTSIDE RECORDS SUMMARY | 2025-01-01 11:48 | XMS_ITS | Encounter Summary ---
Author Organization [facility] Address [address] [place] [address] Care Team Providers Care Bank Officer Name Role Phone Marychuy Soto MD Primary Care Provider [phone] Encounter Details Date Type Department Care Team (Late st Contact Info) Description 09/25/2021 Scanned Documents [facility] Physician [facility] External Scan [address] [place] [phone] Scanned, Document Social History Tobacco Use Types [...] documented as of this encounter Care Teams Bank Officer Relationship Specialty Start Date End Date Marychuy Soto MD [address] [place] [phone] PCP - General Internal Medicine 03/14/20 documented as of this encounter
--- OUTSIDE RECORDS SUMMARY | 2025-01-01 11:48 | XMS_ITS | Encounter Summary ---
Author Organization [facility] Address [address] [place] [address] Care Team Providers Care Smocking Machine Operator Name Role Phone Marychuy Soto MD Primary Care Provider [phone] Encounter Details Date Type Department Care Team (Late st Contact Info) Description 02/26/2022 Scanned Documents [facility] Physician [facility] External Scan [address] [place] [phone] Scanned, Document Social History Tobacco Use Types [...] AM EST documented as of this encounter Functional Status * Patient's vision adequate to safely complete daily activities? Answer Date of Assessment Author Yes 01/15/2022 12:00 AM EDT Anne Marie Goldsmith, RN documented as of this encounter Plan of Treatment Not on file documented as of this encounter Visit Diagnoses Not on filedocumented in this encounter Care Teams Smocking Machine Operator Relationship Specialty Start Date End Date Marychuy Soto MD [address] [place] [id number] PCP - General Internal Medicine 03/14/20 documented as of this encounter
--- OUTSIDE RECORDS SUMMARY | 2025-01-01 11:48 | XMS_ITS | Encounter Summary ---
Author Organization [facility] Address [address] [place] [address] Care Team Providers Care Hvac Refrigeration Technician Name Role Phone Marychuy Soto MD Primary Care Provider [phone] Encounter Details Date Type Department Care Team (Late st Contact Info) Description 09/07/2021 Scanned Documents [facility] Physician [facility] External Scan [address] [place] [phone] Scanned, Document Social History Tobacco Use Types [...] documented as of this encounter Care Teams Hvac Refrigeration Technician Relationship Specialty Start Date End Date Marychuy Soto MD [address] [place] [id number] PCP - General Internal Medicine 03/14/20 documented as of this encounter
--- OUTSIDE RECORDS SUMMARY | 2025-01-01 11:48 | XMS_ITS | Clinical Summary ---
Author Organization [facility] Address [address] [place] [address] Care Team Providers Care Bottom Finisher Name Role Phone Unavailable Primary Care Provider [...] = N/A Late transfer of care from [facility] [x] Intake labs reviewed by: Date: Rh [...] the last 3 months, has th e [employer], gas, oil or water company threatened to [...]
--- OUTSIDE RECORDS SUMMARY | 2025-01-01 11:48 | XMS_ITS | Encounter Summary ---
Author Organization [facility] Address [address] [place] [address] Care Team Providers Care Flight Steward Name Role Phone Marychuy Soto MD Primary Care Provider [phone] Encounter Details Date Type Department Care Team (Late st Contact Info) Description 08/04/2021 Scanned Documents [facility] Physician [facility] External Scan [address] [place] [address] Scanned, Document Social History Tobacco Use Types [...] documented as of this encounter Care Teams Flight Steward Relationship Specialty Start Date End Date Marychuy Soto MD [address] [place] [phone] PCP - General Internal Medicine 03/14/20 documented as of this encounter
--- OUTSIDE RECORDS SUMMARY | 2025-01-01 11:48 | XMS_ITS | Encounter Summary ---
Author Organization [facility] Address [address] [place] [address] Care Team Providers Care Arm Rest Builder Name Role Phone Marychuy Soto MD Primary Care Provider [phone] Reason for Visit * Reason Onset Date Comments Authorization 07/13/2020 Dawit Encounter Details Date Type Department Care Team (Late st Contact Info) Description 07/13/2020 Telephone [facility] [address] [place] [address] Martha Harvey MA [address] [place], [place] [address] Authorization (Dawit) Social History Tobacco Use Types Packs/Day Years [...] Telephone Encounter - Martha Samaniego MA - 07/13/2020 9:31 AM EST Left detailed message of [employer] being authorized for pt. Asked pt to call us back to schedule insertion. documented in this encounter Plan of Treatment [...] documented as of this encounter Care Teams Arm Rest Builder Relationship Specialty Start Date End Date Marychuy Soto MD [address] [place] [id number] PCP - General Internal Medicine 03/14/20 documented as of this encounter
--- OUTSIDE RECORDS SUMMARY | 2025-01-01 11:48 | XMS_ITS | Encounter Summary ---
Author Organization [facility] Address [address] [place] [address] Care Team Providers Care Jointer Operator Name Role Phone Marychuy Soto MD Primary Care Provider [phone] Encounter Details Date Type Department Care Team (Late st Contact Info) Description 08/28/2021 Scanned Documents [facility] Physician [facility] External Scan [address] [place] [address] Scanned, Document Social History Tobacco Use Types [...] documented as of this encounter Care Teams Jointer Operator Relationship Specialty Start Date End Date Marychuy Soto MD [address] [place] [address] PCP - General Internal Medicine 03/14/20 documented as of this encounter
--- OUTSIDE RECORDS SUMMARY | 2025-01-01 11:48 | XMS_ITS | Encounter Summary ---
Author Organization [facility] Address [address] [place] [address] Care Team Providers Care Animal Husbandry Worker Name Role Phone Marychuy Soto MD Primary Care Provider [phone] Encounter Details Date Type Department Care Team (Late st Contact Info) Description 11/23/2021 Scanned Documents [facility] Physician [facility] External Scan [address] [place] [address] Scanned, Document Social History Tobacco Use Types [...] documented as of this encounter Care Teams Animal Husbandry Worker Relationship Specialty Start Date End Date Marychuy Soto MD [address] [place] [address] PCP - General Internal Medicine 03/14/20 documented as of this encounter
--- OUTSIDE RECORDS SUMMARY | 2025-01-01 11:48 | XMS_ITS | Encounter Summary ---
Author Organization [facility] Address [address] [place] [address] Care Team Providers Care Traveling Passenger Agent Name Role Phone Stephanie Espitia APN Primary Care Provider Marychuy Soto MD Primary Care Provider [phone] Encounter Details Date Type Department Care Team (Late st Contact Info) Description 09/03/2018 Scanned Documents [facility] Physician [facility] External Scan [address] [place] [address] Scanned, Document Social History Tobacco Use Types Packs/Day Years Used Date Smoking Tobacco: Never Smokeless Tobacco: Never Snuff Alcohol Use Standard Drinks/Week Comments Yes 0 (1 standard drink = 0.6 oz pur e alcohol) Comments Unknown Sex and Gender Information Value Date Recorded [...] Last Indicated Resolved Time COVID-19 Rule Out 11/06/2019 11/06/2019 11/07/2019 8:13 AM EDT COVID-19 Rule Out 11/25/2019 11/25/2019 11/26/2019 9:14 AM EDT COVID-19 Rule Out 07/27/2020 07/28/2020 07/29/2020 10:49 PM EDT COVID-19 Detected 04/25/2021 04/25/2021 05/23/2021 7:18 PM EST Covid-19 Screening 01/14/2022 01/14/2022 12:14 AM EDT documented as of this encounter Care Teams Traveling Passenger Agent Relationship Specialty Start Date End Date Stephanie Espitia APN [address] [place] [address] PCP - General Internal Medicine 09/18/17 03/13/20 Marychuy Soto MD [address] [place] [phone] PCP - General Internal Medicine 03/14/20 documented as of this encounter
--- OUTSIDE RECORDS SUMMARY | 2025-01-01 11:48 | XMS_ITS | Encounter Summary ---
Author Organization [facility] Address [address] [place] [address] Care Team Providers Care Educational Psychology Teacher Name Role Phone Marychuy Soto MD Primary Care Provider [phone] Encounter Details Date Type Department Care Team (Late st Contact Info) Description 01/05/2022 Scanned Documents [facility] Physician [facility] External Scan [address] [place] [address] Scanned, Document Social History Tobacco Use Types [...] documented as of this encounter Care Teams Educational Psychology Teacher Relationship Specialty Start Date End Date Marychuy Soto MD [address] [place] [address] PCP - General Internal Medicine 03/14/20 documented as of this encounter
--- OUTSIDE RECORDS SUMMARY | 2025-01-01 11:48 | XMS_ITS | Encounter Summary ---
Author Organization [facility] Address [address] [place] [address] Care Team Providers Care Road Conductor Name Role Phone Marychuy Soto MD Primary Care Provider [phone] Encounter Details Date Type Department Care Team (Late st Contact Info) Description 07/19/2021 Scanned Documents [facility] Physician [facility] External Scan [address] [place] [address] Scanned, Document Social History Tobacco Use Types [...] documented as of this encounter Care Teams Road Conductor Relationship Specialty Start Date End Date Marychuy Soto MD [address] [place] [address] PCP - General Internal Medicine 03/14/20 documented as of this encounter
--- OUTSIDE RECORDS SUMMARY | 2025-01-01 11:48 | XMS_ITS | Encounter Summary ---
Author Organization [facility] Address [address] [place] [address] Care Team Providers Care Barrel Turner Name Role Phone Marychuy Soto MD Primary Care Provider [phone] Reason for Visit * Reason Onset Date Comments Requesting appt 05/15/2023 Encounter Details Date Type Department Care Team (Late st Contact Info) Description 05/15/2023 Telephone [facility] [address] [phone] Marychuy Soto MD [address] [place] [address] Requesting appt Social History Tobacco Use Types Packs/Day Years [...] Yes 01/15/2022 12:00 AM EDT Anne Marie Goldsmith RN documented as of this encounter Miscellaneous Notes * Telephone Encounter - Kellie Bradshaw Von - 05/16/2023 9:11 AM EST She was in no tesfaye so I scheduled her for Jun. * Telephone Encounter - Marychuy Soto MD - 05/15/2023 9:45 PM EST She can be scheduled with me. Can do before office hours. * Telephone Encounter - Kellie S Von - 05/15/2023 4:[address] Soto, Pt hasn't seen you since jun 2020. Shall I schedule with you again or shall I offer another provider. She's only 37 * Telephone Encounter - Melba Wild - 05/15/2023 4:31 PM EST Patient is calling requesting CPX appt with Dr Soto. Last seen 06/13/20 please review and call back. PT #[phone] documented in this encounter Plan of Treatment Not on file documented as of this encounter Visit Diagnoses Not on filedocumented in this encounter Care Teams Barrel Turner Relationship Specialty Start Date End Date Marychuy Soto MD [address] [place] [address] PCP - General Internal Medicine 03/14/20 documented as of this encounter
== END 2025-01-01 11:42 | disposition home or self-care (01) ==
LOC: HO.HOS 11:04
PROVIDERS: Visit Provider Physical Medicine & Rehabilitation
DX: M53.3 Sacrococcygeal disorders, not elsewhere classified (principal); G57.01 Lesion of sciatic nerve, right lower limb; Z87.828 Personal history of other (healed) physical injury and trauma
CPT/HCPCS: 99204

== ENCOUNTER 2025-01-18 11:05 | Outpatient (AMB) | payer OTHER, SELFPAY ==
--- NOTE | 2025-01-18 11:06 | A.OFFPC_ITS ---
Vital Signs 01/18/25 11:16 Height 5 ft 9.09 in Weight 238 lb 4 oz BMI 35.1 BP 120/80 Blood Pressure Location Lt brachial Position Sitting Respiration 16 Pulse 75 Pulse Source Pulse Oximeter Temp 97.8 F Temp Source Oral Pulse Oximetry (%) 94 Oxygen Delivery Method Room Air Intake Visit Reasons: establish care with pcp - Intake Note: establish care Electroplating Laborer Required: No Accompanied by: Self / Same As Patient Allergies No Known Allergies Allergy (Verified 01/18/25 11:07) Tobacco use date assessed: 01/18/25 Dental Screening Dental Screen Date: 01/18/25 Did you have a dental visit in the last 12 months?: Yes Did you have a dental problem in the last 6 months where you did not have access to dental care?: No Was dental information given to patient?: Patient has dentist HPI HPI Comments History of Present Illness Details History of Present Illness The patient is a 39-year-old female presenting for establishment of care. Back pain: - Currently receiving physical therapy. - Improvement with PT noted. Piriformis syndrome: - Improved with physical therapy. Meniscus tear of knee joint: - Right knee meniscal tear, history of n o surgical intervention, currently stable. Health Maintenance - Up-to-date with Pap smear screening, n ext due in March. - Routine laboratory tests ordered: CBC, CMP, A1c, Lipid panel, Urinalysis, Vitamin D. - Screening for Hepatitis B, Hepatitis C . - Patient previously , reviewed obstetric history and medical history considerations. Review of Systems - Cardiovascular: Denies swelling of ext remities. - Musculoskeletal: Reports back pain imp roving with PT. - Neurological: Denies any new neurologi bethel symptoms. - Genitourinary: Denies recent complications. 10-point ROS reviewed and negative excep t as noted in HPI Allergies Medications - Multivitamins Current Substance Use - Denies smoking. - Reports rare alcohol use, last consume d in April. Substance Use History - Denies history of substance abuse. Past Medical History - Back pain currently receiving physical therapy - Piriformis syndrome improved with phys ical therapy - Meniscus tear of knee joint Family History - Mother: Papillary thyroid cancer, hype rtension - Father: Family history of gastric canc er, sister of colon cancer Social History - Resides in [place] for child[facility]; spouse working in [place] as a teacher. - Reports limited access to products and services compared to previous location. 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 Physical Exam General: No apparent distress. Alert and oriented x 3. Head:Normocephalic, atraumatic Eyes: Pupils equal, round, and reactive to light. Extraocular movements intact Throat: Open your mouth. Stick your tongue out and say ah. Ah.ropharynx clear. Mucus membranes moist Neck: Supple. No lymphadenopathy. Checking your thyroid. Any thyroid issues in the family? You told me it was just a patch of that with your mom, right? eft anterior descending artery distention. No jugular vein distention. No bruit. Cardiovascular: Regular rate and rhythm. Normal S1 and S2. No murmurs. Any swelling of your lower extremities? No. murmurs, rubs, or gallops Lungs: Clear to auscultation bilaterally. Breath sounds equal bilaterally. No rales, ronchi, or wheezes. Abdomen: Non-tender. Non-distended. Bowel sounds auscultated. No masses or organomegaly. hepatosplenomegaly. No mass/rebound/guarding Extremities: No cyanosis, clubbing, or edema.lubbing, cyanosis, and edema. 2+ pulses Neuro: Central nerves II-XII grossly intact. Motor/sensory intact. Reflexes 2+. Gait normal. Skin: Warm, dry, and intact. No rash. Discussion Notes During this visit, I discussed with the patient the importance of establishing care for continuity and preventive health management. We reviewed her relevant medical history and current conditions, including back pain, previous piriformis syndrome, and meniscus tear of the knee. Screening tests including CBC, CMP, A1c, Lipid panel, and vitamin D levels were ordered. A comprehensive family history was taken. I recommended continued physical therapy for ongoing back pain as appropriate, and the patient expressed understanding of the management plans discussed. We also went over the necessity of regular health maintenance such as scheduled Pap smears. The patient was advised on maintaining a healthy lifestyle with an emphasis on follow-up if any new symptoms occur. Plan 1. Dorsalgia, unspecified M54.9 - Continue physical therapy and monitor symptoms. 2. Lesion of sciatic nerve, unspecified lower limb G57.00 - Improved with therapy, monitor for rec urrence. 3. Unspecified tear of unspecified menis cus, current injury, unspecified knee, initial encounter S83.577A - Monitor stability, surgical interventi on reserved for symptom escalation. Treatment Summary Anticapatory Guidance - Emphasize the importance of regular he alth screenings and maintaining an active lifestyle. - Encourage the patient to seek medical attention for new or worsening symptoms. Patient Instructions - Continue physical therapy for back ramakrishna n. - Maintain scheduled screenings and appo intments. - Follow a healthy lifestyle including r egular exercise and balanced diet. - Return for follow-up if symptoms persi st or worsen. PFSH Family History (Updated 01/18/25 @ 11:15 by Oumar Phillips MA) Father No problems noted. Mother Hypertension Papillary thyroid carcinoma Social History (Updated 01/01/25 @ 11:14 by Lily Lugo) Housing: Apartment Alcohol intake: current Alcohol intake frequency: holidays/special occasions only Patient Tobacco Use Status: Never used Tobacco service: No Current occupational status: employed Cognitive needs: No Hearing needs: No Vision needs: No Questionnaire PHQ-9 Over the last 2 weeks, how often have you been bothered by any of the following problems? 1. Little interest or pleasure in doing things: not at all 2. Feeling down, depressed, or hopeless: not at all 3. Trouble falling or staying asleep, or sleeping too much: not at all 4. Feeling tired or having little energy: not at all 5. Poor appetite or overeating: not at all 6. Feeling bad about yourself - or that you are a failure or have let yourself or your family down: not at all 7. Trouble concentrating on things, such as reading the newspaper or watching television: not at all 8. Moving or speaking so slowly that other people could have noticed. Or the opposite - being so fidgety or restless that you have been moving around a lot more than usual: not at all 9. Thoughts that you would be better off or of hurting yourself in some way: not at all Total score: 0 Depression Screening Interpretation: Negative Depression Screening Done: Yes Source: Developed by Drs. Luis Ragland, Imelda Duggan, Naldo Lowry and colleagues, with an educational ry from [employer]. Thrive Questionnaire Date Thrive assessed: 01/18/25 I am a: Patient What is your living situation today?: I have a steady place to live Within the past 12 months, did the food you bought not last and you didn't have the money to get more?: Never true Within the past 12 months, did you worry whether your food would run out before you got money to buy more?: Never true Do you have trouble paying for medicines?: No Do you have trouble getting transportation to medical appointments?: No Do you have trouble paying your heating and electricity bill?: No Do you have trouble taking care of your child, family member or friend?: No Do you have trouble with day-to-day activities such as bathing, preparing meals, shopping, managing finances, etc.?: No Are you currently unemployed and looking for a job?: No Are you interested in more education?: No Please select the resources that you would like help with: None Currently or been in a relationship where the following occur: No concerns reported THRIVE Score: 0 AUDIT C Alcohol Use Questionnaire (AUDIT-C) 1. How often do you have a drink containing alcohol?: Monthly or less 2. How many drinks containing alcohol do you have on a typical day when you are drinking?: 1 or 2 3. How often do you have six or more drinks on one occasion?: Never Total Score: 1 ELINA-7 AMB Questionnaire ELINA-7 Feeling nervous, anxious, or on edge: 0 = Not at all Not being able to stop or control worryin = Not at all Worrying too much about different things: 0 = Not at all Trouble relaxin = Not at all Being so restless that it is hard to sit still: 0 = Not at all Becoming easily annoyed or irritable: 0 = Not at all Feeling afraid as if something awful might happen: 0 = Not at all Total ELINA-7 score (0-4 normal; 5-9 mild; 10-14 moderate; 15-21 severe): 0 Source: Developed by Drs. Luis Ragland, Imelda Duggan, Naldo Lowry and colleagues, with an educational ry from [employer]. Physical exam (Primary Care) Depression Screening Interpretation: Negative Thrive Assessment: Date of Thrive Assessment Date Thrive assessed 01/18/25 01/18/25 10:46 Currently or been in a relationship where the following occur: No concerns reported Coding Level of Care Code New Pt Level 3 (66905) Diagnoses Establishing care with new doctor, encounter for Z76.89 Routine lab draw Z01.89 Encounter for screening, unspecified Z13.9 Counseling, unspecified Z71.9 Screening for depression Z13.31 Screening for lipoid disorders Z13.220 Screening for diabetes mellitus Z13.1 Hypertension screen Z13.6 Class 2 obesity E66.812 Assessment & Plan Assessment & Plan (1) Establishing care with new doctor, encounter for: Code(s): Z76.89 - Persons encountering health services in other specified circumstances (2) Routine lab draw: Code(s): Z01.89 - Encounter for other specified special examinations (3) Encounter for screening, unspecified: Code(s): Z13.9 - Encounter for screening, unspecified (4) Counseling, unspecified: Code(s): Z71.9 - Counseling, unspecified (5) Screening for depression: Code(s): Z13.31 - Encounter for screening for depression (6) Screening for lipoid disorders: Code(s): Z13.220 - Encounter for screening for lipoid disorders (7) Screening for diabetes mellitus: Code(s): Z13.1 - Encounter for screening for diabetes mellitus (8) Hypertension screen: Code(s): Z13.6 - Encounter for screening for cardiovascular disorders (9) Class 2 obesity: Code(s): E66.812 - Obesity, class 2 Plan Orders: Orders Complete Blood Count Auto Diff Today Z13.9 - Encounter for screening, unspecified, Z76.89 - Persons encountering health services in other specified circumstances Comprehensive Met. Panel Today Z13.9 - Encounter for screening, unspecified, Z76.89 - Persons encountering health services in other specified circumstances Hemoglobin A1c Today Z13.9 - Encounter for screening, unspecified, Z76.89 - Persons encountering health services in other specified circumstances Hepatitis B Surface Antibody Today Z13.9 - Encounter for screening, unspecified, Z76.89 - Persons encountering health services in other specified circumstances Hepatitis C Antibody Today Z13.9 - Encounter for screening, unspecified, Z76.89 - Persons encountering health services in other specified circumstances HIV Ab/Ag Today Z13.9 - Encounter for screening, unspecified, Z76.89 - Persons encountering health services in other specified circumstances UA CC w/rflx Micro + Cult Today Z13.9 - Encounter for screening, unspecified, Z76.89 - Persons encountering health services in other specified circumstances Vitamin D 1,25 dihydroxy Today Z13.9 - Encounter for screening, unspecified, Z76.89 - Persons encountering health services in other specified circumstances Hepatitis B Surface Antigen Today Z13.9 - Encounter for screening, unspecified, Z76.89 - Persons encountering health services in other specified circumstances Lipid Panel Today Z13.9 - Encounter for screening, unspecified, Z76.89 - Persons encountering health services in other specified circumstances
[2025-01-18 11:16] VITALS: BP 120/80; PULSE 75; RESP 16; TEMP 36.6; O2SAT 94; BMI 35.1
--- OUTSIDE RECORDS SUMMARY | 2025-01-18 14:47 | XMS_ITS | Clinical Summary ---
Author Organization [facility] Address [address] [place] [address] Care Team Providers Care Military Technician Name Role Phone Marychuy Soto MD Primary Care Provider Allergies Active Allergy Reactions Criticality Noted Date [...] doing good now. Natural Sister Alive Other [place] descen t Paternal Aunt Paternal Grandfather Social [...] 10/25/2023 07/25/2023, 06/15/2022, 03/02/2022, Additional history exists Annual Physical Exam 07/24/2024 07/25/2023, 07/25/2023, 03/08/2021, Additional history exists COVID-19 Vaccine ( season) 2025 02/01/2021, 05/13/2020, 04/22/2020 Flu Vaccine (#1) 01/04/2025 03/11/2023, , 04/09/2022, [...] pap HPV Plus (07/25/2023 2:24 PM EDT) DIRECTOR OF TEACHING AND LEARNING Cytology Comment See attached report 07/30/2023 7:28 AM EDT [facility] Liquid-based preparation technique (qualifier value) (Thin prep pap) Collection / Unknown 07/25/2023 2:24 PM EDT 07/25/2023 2:25 PM EDT Marychuy Soto MD PATHOLOGY/CYTOLOGY ORDERABLES Fi nal Result [address] [address] * Hepatitis C Antibody (01/10/2021 2:36 PM EDT) Hep C Ab Nonreactive Nonreactive 01/10/2021 7:15 PM EDT [facility] Hep C Ratio 0.15 <=0.80 RATIO 01/10/2021 7:15 PM EDT [facility] Blood Venipuncture / Unknown 01/10/2021 2:36 PM EDT 01/10/2021 2:36 PM EDT Lily Huerta APN IMMUNOLOGY ORDERABLES Griselda yu Result [facility] [address] [place] [address] from Last 3 Months or Most Recently Relevant to Health Maintenance Insurance PPO Advance Directives * Full Code (Latest Code Status on File) Date Activated Date Inactivated Comments 01/14/2022 11:17 PM 01/15/2022 9:20 AM Care Teams Military Technician Relationship Specialty Start Date End Date Marychuy Soto MD [address] [place] [address] PCP - General Internal Medicine 03/14/20
--- OUTSIDE RECORDS SUMMARY | 2025-01-18 14:47 | XMS_ITS | Encounter Summary ---
Author Organization [facility] Address [address] [place] [address] Care Team Providers Care Adjuster Arbitrator Name Role Phone Marychuy Soto MD Primary Care Provider [phone] Encounter Details Date Type Department Care Team (Late st Contact Info) Description 09/25/2021 Scanned Documents [facility] Physician [facility] External Scan [address] [place] [address] Scanned, Document Social History Tobacco Use Types [...] documented as of this encounter Care Teams Adjuster Arbitrator Relationship Specialty Start Date End Date Marychuy Soto MD [address] [place] [phone] PCP - General Internal Medicine 03/14/20 documented as of this encounter
--- OUTSIDE RECORDS SUMMARY | 2025-01-18 14:47 | XMS_ITS | Patient Health Record ---
Author Organization [facility] Address [address] [facility] [address] [place] [address] Care Team Providers Care Pipe Tester Name Role Phone Beth Tapia Unavailable [phone] Reason For Referral No Information Medications Medication [...] Test Test Name Order Date TRICHOMONAS VAGINALIS -(33379) 9 CT/GC - 01414 10/29/2018 Medical (General) History Medical History History ICD Code allergies 11/18/2018 Alcohol: No 11/18/2018 Drug Use: No 11/18/2018 Loratadine
--- OUTSIDE RECORDS SUMMARY | 2025-01-18 14:47 | XMS_ITS | Encounter Summary ---
Author Organization [facility] Address [address] [place] [address] Care Team Providers Care Pe Electrical Engineer Name Role Phone Marychuy Soto MD Primary Care Provider Encounter Details Date Type Department Care Team (Late st Contact Info) Description 07/19/[address] [facility] Physician [facility] External Scan [address] [place] [address] Scanned, Document Social History Tobacco Use Types [...] documented as of this encounter Care Teams Pe Electrical Engineer Relationship Specialty Start Date End Date Marychuy Soto MD [address] [place] [address] PCP - General Internal Medicine 03/14/20 documented as of this encounter
--- OUTSIDE RECORDS SUMMARY | 2025-01-18 14:47 | XMS_ITS | Encounter Summary ---
Author Organization [facility] Address [address] [place] [address] Care Team Providers Care Family Law Paralegal Name Role Phone Marychuy Soto MD Primary Care Provider [phone] Reason for Visit * Reason Onset Date Comments Authorization 07/13/2020 Dawit Encounter Details Date Type Department Care Team (Late st Contact Info) Description 07/13/2020 Telephone [facility] [address] [place] [address] Martha Harvey MA [address] [place], [place] [address] Authorization (Dawit) Social History Tobacco Use Types [...] documented as of this encounter Care Teams Family Law Paralegal Relationship Specialty Start Date End Date Marychuy Soto MD [address] [place] [address] PCP - General Internal Medicine 03/14/20 documented as of this encounter
--- OUTSIDE RECORDS SUMMARY | 2025-01-18 14:47 | XMS_ITS | Encounter Summary ---
Author Organization [facility] Address [address] [place] [address] Care Team Providers Care Advance Agent Name Role Phone Marychuy Soto MD Primary Care Provider Encounter Details Date Type Department Care Team (Late st Contact Info) Description 08/04/2021 Scanned Documents [facility] Physician [facility] External Scan [address] [place] [address] Scanned, Document Social History Tobacco Use Types [...] documented as of this encounter Care Teams Advance Agent Relationship Specialty Start Date End Date Marychuy Soto MD [address] [place] [address] PCP - General Internal Medicine 03/14/20 documented as of this encounter
--- OUTSIDE RECORDS SUMMARY | 2025-01-18 14:47 | XMS_ITS | Encounter Summary ---
Author Organization [facility] Address [address] [place] [address] Care Team Providers Care Esthetician And Manager Medical Spa Name Role Phone Stephanie Espitia APN Primary Care Provider Marychuy Soto MD Primary Care Provider [phone] Encounter Details Date Type Department Care Team (Late st Contact Info) Description 09/03/2018 Scanned Documents [facility] Physician [facility] External Scan [address] [place] [address] Scanned, Document Social History Tobacco Use Types [...] documented as of this encounter Care Teams Esthetician And Manager Medical Spa Relationship Specialty Start Date End Date Stephanie Espitia APN [address] [place] [address] PCP - General Internal Medicine 09/18/17 03/13/20 Marychuy Soto MD [address] [place] [address] PCP - General Internal Medicine 03/14/20 documented as of this encounter
--- OUTSIDE RECORDS SUMMARY | 2025-01-18 14:47 | XMS_ITS | Encounter Summary ---
Author Organization [facility] Address [address] [place] [address] Care Team Providers Care Exchange Underwriting Consultant Name Role Phone Marychuy Soto MD Primary Care Provider [phone] Encounter Details Date Type Department Care Team (Late st Contact Info) Description 10/10/2021 Scanned Documents [facility] Physician [facility] External Scan [address] [place] [address] Scanned, Document Social History Tobacco Use Types [...] documented as of this encounter Care Teams Exchange Underwriting Consultant Relationship Specialty Start Date End Date Marychuy Soto MD [address] [place] [address] PCP - General Internal Medicine 03/14/20 documented as of this encounter
--- OUTSIDE RECORDS SUMMARY | 2025-01-18 14:47 | XMS_ITS | Encounter Summary ---
Author Organization [facility] Address [address] [place] [address] Care Team Providers Care Home Visits Nurse Name Role Phone Marychuy Soto MD Primary Care Provider [phone] Encounter Details Date Type Department Care Team (Late st Contact Info) Description 09/07/2021 Scanned Documents [facility] Physician [facility] External Scan [address] [place] [address] Scanned, Document Social History Tobacco Use Types [...] documented as of this encounter Care Teams Home Visits Nurse Relationship Specialty Start Date End Date Marychuy Soto MD [address] [place] [address] PCP - General Internal Medicine 03/14/20 documented as of this encounter
--- OUTSIDE RECORDS SUMMARY | 2025-01-18 14:47 | XMS_ITS | Encounter Summary ---
Author Organization [facility] Address [address] [place] [address] Care Team Providers Care Statistics Teacher Name Role Phone Marychuy Soto MD Primary Care Provider [phone] Encounter Details Date Type Department Care Team (Late st Contact Info) Description 08/04/2021 Scanned Documents [facility] Physician [facility] External Scan [address] [place] [address] Scanned, Document Social History Tobacco Use Types [...] documented as of this encounter Care Teams Statistics Teacher Relationship Specialty Start Date End Date Marychuy Soto MD [address] [place] [address] PCP - General Internal Medicine 03/14/20 documented as of this encounter
--- OUTSIDE RECORDS SUMMARY | 2025-01-18 14:47 | XMS_ITS | Clinical Summary ---
Author Organization [employer] Address [address] [place] [address] Care Team Providers Care Rn Urgent Care Name Role Phone Unavailable Primary Care Provider [...] = N/A Late transfer of care from [facility] [x] Intake labs reviewed by: Date: Rh [...] the last 3 months, has th e Drawn to Scale, gas, oil or water company threatened to [...] PAP [employer]AR 2008 COVID-19 Vaccine (4 - 2024- season) 2025 02/01/2021, 05/13/2020, 04/22/2020 Influenza Vaccine (#1) 2025 [...]
--- OUTSIDE RECORDS SUMMARY | 2025-01-18 14:47 | XMS_ITS | Encounter Summary ---
Author Organization [facility] Address [address] [place] [address] Care Team Providers Care Children Teacher Name Role Phone Marychuy Stoo MD Primary Care Provider [phone] Reason for Visit * Reason Onset Date Comments Requesting appt 05/15/2023 Encounter Details Date Type Department Care Team (Late st Contact Info) Description 05/15/2023 Telephone [facility] [address] [address] Marychuy Soto MD [address] [place] [address] Requesting appt Social History Tobacco Use [...] 06/13/20 please review and call back. PT #[phone] documented in this encounter Plan of Treatment Not on file documented as of this encounter Visit Diagnoses Not on filedocumented in this encounter Care Teams Children Teacher Relationship Specialty Start Date End Date Marychuy Soto MD [address] [place] [address] PCP - General Internal Medicine 03/14/20 documented as of this encounter
--- OUTSIDE RECORDS SUMMARY | 2025-01-18 14:47 | XMS_ITS | Encounter Summary ---
Author Organization [facility] Address [address] [place] [address] Care Team Providers Care Cutter Banana Room Name Role Phone Marychuy Soto MD Primary Care Provider [phone] Encounter Details Date Type Department Care Team (Late st Contact Info) Description 01/05/[address] [facility] Physician [facility] External Scan [address] [place] [address] Scanned, Document Social History Tobacco Use Types [...] documented as of this encounter Care Teams Cutter Banana Room Relationship Specialty Start Date End Date Mayrchuy Soto MD [address] [place] [address] PCP - General Internal Medicine 03/14/20 documented as of this encounter
--- OUTSIDE RECORDS SUMMARY | 2025-01-18 14:47 | XMS_ITS | Encounter Summary ---
Author Organization [facility] Address [address] [place] [address] Care Team Providers Care Motel Maid Name Role Phone Marychuy Soto MD Primary Care Provider [phone] Encounter Details Date Type Department Care Team (Late st Contact Info) Description 11/23/2021 Scanned Documents [facility] Physician [facility] External Scan [address] [place] [address] Scanned, Document Social History Tobacco Use Types [...] documented as of this encounter Care Teams Motel Maid Relationship Specialty Start Date End Date Marychuy Soto MD [address] [place] [address] PCP - General Internal Medicine 03/14/20 documented as of this encounter
--- OUTSIDE RECORDS SUMMARY | 2025-01-18 14:47 | XMS_ITS | Encounter Summary ---
Author Organization [facility] Address [address] [place] [address] Care Team Providers Care Utility Technician Name Role Phone Marychuy Soto MD Primary Care Provider Encounter Details Date Type Department Care Team (Late st Contact Info) Description 08/22/2021 Scanned Documents [facility] Physician [facility] External Scan [address] [place] [address] Scanned, Document Social History Tobacco Use Types [...] documented as of this encounter Care Teams Utility Technician Relationship Specialty Start Date End Date Marychuy Soto MD [address] [place] [address] PCP - General Internal Medicine 03/14/20 documented as of this encounter
--- OUTSIDE RECORDS SUMMARY | 2025-01-18 14:47 | XMS_ITS | Encounter Summary ---
Author Organization [facility] Address [address] [place] [address] Care Team Providers Care Ribbon Sweatband Operator Name Role Phone Marychuy Soto MD Primary Care Provider [phone] Encounter Details Date Type Department Care Team (Late st Contact Info) Description 02/26/2022 Scanned Documents [facility] Physician [facility] External Scan [address] [place] [address] Scanned, Document Social History Tobacco Use Types [...] on filedocumented in this encounter Care Teams Ribbon Sweatband Operator Relationship Specialty Start Date End Date Marychuy Soto MD [address] [place] [address] PCP - General Internal Medicine 03/14/20 documented as of this encounter
--- OUTSIDE RECORDS SUMMARY | 2025-01-18 14:47 | XMS_ITS | Encounter Summary ---
Author Organization [facility] Address [address] [place] [address] Care Team Providers Care Operations Team Leader Name Role Phone Marychuy Soto MD Primary Care Provider [phone] Encounter Details Date Type Department Care Team (Late st Contact Info) Description 08/28/2021 Scanned Documents [facility] Physician [facility] External Scan [address] [place] [address] Scanned, Document Social History Tobacco Use Types [...] documented as of this encounter Care Teams Operations Team Leader Relationship Specialty Start Date End Date Marychuy Soto MD [address] [place] [address] PCP - General Internal Medicine 03/14/20 documented as of this encounter
--- OUTSIDE RECORDS SUMMARY | 2025-01-18 14:47 | XMS_ITS | Encounter Summary ---
Author Organization [facility] Address [address] [place] [address] Care Team Providers Care Aging Room Operator Name Role Phone Marychuy Soto MD Primary Care Provider [phone] Reason for Visit * Reason Onset Date Comments paragard 07/11/2020 needed update on shipment. Encounter Details Date Type Department Care Team (Late st Contact Info) Description 07/11/2020 Telephone [facility] Gynecology Maribeth Hurst [address] [place] [address] Martha Harvey MA [address] [place] [phone] paragard (needed update on shipment.) Social History [...] documented as of this encounter Care Teams Aging Room Operator Relationship Specialty Start Date End Date Marychuy Soto MD [address] [place] [address] PCP - General Internal Medicine 03/14/20 documented as of this encounter
--- OUTSIDE RECORDS SUMMARY | 2025-01-18 14:47 | XMS_ITS | Encounter Summary ---
Author Organization [facility] Address [address] [place] [address] Care Team Providers Care Insulator Technician Name Role Phone Marychuy Soto MD Primary Care Provider [phone] Encounter Details Date Type Department Care Team (Late st Contact Info) Description 01/11/2022 Scanned Documents [facility] Physician [facility] External Scan [address] [place] [address] Scanned, Document Social History Tobacco Use Types [...] documented as of this encounter Care Teams Insulator Technician Relationship Specialty Start Date End Date Marychuy Soto MD [address] [place] [address] PCP - General Internal Medicine 03/14/20 documented as of this encounter
== END 2025-01-18 11:47 | disposition home or self-care (01) ==
LOC: HO.HMCFMS 11:06
PROVIDERS: PCP Student in an Organized Health Care Education/Training Program; Visit Provider Student in an Organized Health Care Education/Training Program
DX: E66.812 Obesity, class 2 (principal); Z68.35 Body mass index [BMI] 35.0-35.9, adult

== ENCOUNTER 2025-02-05 09:54 | Outpatient (REF) | payer OTHER, SELFPAY ==
--- OUTSIDE RECORDS SUMMARY | 2025-02-05 10:39 | XMS_ITS | Encounter Summary ---
Author Organization [facility] Address [address] [place] [address] Care Team Providers Care Stereo Equipment Installer Name Role Phone Marychuy Soto MD Primary Care Provider [phone] Encounter Details Date Type Department Care Team (Late st Contact Info) Description 09/07/2021 Scanned Documents [facility] Physician [facility] External Scan [address] [place] [address] Scanned, Document Social History Tobacco Use Types [...] documented as of this encounter Care Teams Stereo Equipment Installer Relationship Specialty Start Date End Date Marychuy Soto MD [address] [place] [address] PCP - General Internal Medicine 03/14/20 documented as of this encounter
--- OUTSIDE RECORDS SUMMARY | 2025-02-05 10:39 | XMS_ITS | Patient Health Record ---
Author Organization [facility] Address [address] [facility] [address] [place] [address] Care Team Providers Care Family Preservation Caseworker Name Role Phone Beth Tapia Unavailable [phone] Reason For Referral No Information Medications Medication [...] Test Test Name Order Date TRICHOMONAS VAGINALIS -(06138) 9 CT/GC - 24474 10/29/2018 Medical (General) History Medical History History ICD Code allergies 11/18/2018 Alcohol: No 11/18/2018 Drug Use: No 11/18/2018 Loratadine
--- OUTSIDE RECORDS SUMMARY | 2025-02-05 10:39 | XMS_ITS | Encounter Summary ---
Author Organization [facility] Address [address] [place] [address] Care Team Providers Care Registered Representative Name Role Phone Marychuy Soto MD Primary Care Provider [phone] Encounter Details Date Type Department Care Team (Late st Contact Info) Description 09/25/[address] [facility] Physician [facility] External Scan [address] [place] [address] Scanned, Document Social History Tobacco Use Types [...] documented as of this encounter Care Teams Registered Representative Relationship Specialty Start Date End Date Marychuy Soto MD [address] [place] [address] PCP - General Internal Medicine 03/14/20 documented as of this encounter
--- OUTSIDE RECORDS SUMMARY | 2025-02-05 10:39 | XMS_ITS | Encounter Summary ---
Author Organization [facility] Address [address] [place] [address] Care Team Providers Care Directional Driller Name Role Phone Marychuy Soto MD Primary Care Provider [phone] Encounter Details Date Type Department Care Team (Late st Contact Info) Description 07/19/2021 Scanned Documents [facility] Physician [facility] External Scan [address] [place] [address] Scanned, Document Social History Tobacco Use Types [...] documented as of this encounter Care Teams Directional Driller Relationship Specialty Start Date End Date Marychuy Soto MD [address] [place] [address] PCP - General Internal Medicine 03/14/20 documented as of this encounter
--- OUTSIDE RECORDS SUMMARY | 2025-02-05 10:39 | XMS_ITS | Encounter Summary ---
Author Organization [facility] Address [address] [place] [address] Care Team Providers Care Automobile Appraiser Name Role Phone Marychuy Soto MD Primary Care Provider [phone] Encounter Details Date Type Department Care Team (Late st Contact Info) Description 11/23/2021 Scanned Documents [facility] Physician [facility] External Scan [address] [place] [address] Scanned, Document Social History Tobacco Use Types [...] documented as of this encounter Care Teams Automobile Appraiser Relationship Specialty Start Date End Date Marychuy Soto MD [address] [place] [address] PCP - General Internal Medicine 03/14/20 documented as of this encounter
--- OUTSIDE RECORDS SUMMARY | 2025-02-05 10:39 | XMS_ITS | Encounter Summary ---
Author Organization [facility] Address [address] [place] [address] Care Team Providers Care Sand Technician Name Role Phone Marychuy Soto MD Primary Care Provider [phone] Encounter Details Date Type Department Care Team (Late st Contact Info) Description 10/10/2021 Scanned Documents [facility] Physician [facility] External Scan [address] [place] [address] Scanned, Document Social History Tobacco Use Types [...] documented as of this encounter Care Teams Sand Technician Relationship Specialty Start Date End Date Marychuy Soto MD [address] [place] [address] PCP - General Internal Medicine 03/14/20 documented as of this encounter
--- OUTSIDE RECORDS SUMMARY | 2025-02-05 10:39 | XMS_ITS | Encounter Summary ---
Author Organization [facility] Address [address] [place] [address] Care Team Providers Care Church Secretary Name Role Phone Marychuy Soto MD Primary Care Provider Encounter Details Date Type Department Care Team (Late st Contact Info) Description 08/22/[address] [facility] Physician [facility] External Scan [address] [place] [address] Scanned, Document Social History Tobacco Use Types [...] documented as of this encounter Care Teams Church Secretary Relationship Specialty Start Date End Date Marychuy Soto MD [address] [place] [address] PCP - General Internal Medicine 03/14/20 documented as of this encounter
--- OUTSIDE RECORDS SUMMARY | 2025-02-05 10:39 | XMS_ITS | Encounter Summary ---
Author Organization [facility] Address [address] [place] [address] Care Team Providers Care Preparer Name Role Phone Marychuy Soto MD Primary Care Provider [phone] Encounter Details Date Type Department Care Team (Late st Contact Info) Description 08/28/2021 Scanned Documents [facility] Physician [facility] External Scan [address] [place] [address] Scanned, Document Social History Tobacco Use Types [...] documented as of this encounter Care Teams Preparer Relationship Specialty Start Date End Date Marychuy Soto MD [address] [place] [address] PCP - General Internal Medicine 03/14/20 documented as of this encounter
--- OUTSIDE RECORDS SUMMARY | 2025-02-05 10:40 | XMS_ITS | Encounter Summary ---
Author Organization [facility] Address [address] [place] [address] Care Team Providers Care Refractory Repairer Name Role Phone Marychuy Stoo MD Primary Care Provider [phone] Encounter Details Date Type Department Care Team (Late st Contact Info) Description 02/26/2022 Scanned Documents [facility] Physician [facility] External Scan [address] [place] [address] Scanned, Document Social History Tobacco Use Types [...] on filedocumented in this encounter Care Teams Refractory Repairer Relationship Specialty Start Date End Date Marychuy Soto MD [address] [place] [address] PCP - General Internal Medicine 03/14/20 documented as of this encounter
--- OUTSIDE RECORDS SUMMARY | 2025-02-05 10:40 | XMS_ITS | Encounter Summary ---
Author Organization [facility] Address [address] [place] [address] Care Team Providers Care Manager Hvac Name Role Phone Marychuy Soto MD Primary Care Provider [phone] Encounter Details Date Type Department Care Team (Late st Contact Info) Description 01/05/2022 Scanned Documents [facility] Physician [facility] External Scan [address] [place] [address] Scanned, Document Social History Tobacco Use Types [...] documented as of this encounter Care Teams Manager Hvac Relationship Specialty Start Date End Date Marychuy Soto MD [address] [place] [address] PCP - General Internal Medicine 03/14/20 documented as of this encounter
--- OUTSIDE RECORDS SUMMARY | 2025-02-05 10:40 | XMS_ITS | Encounter Summary ---
Author Organization [facility] Address [address] [place] [address] Care Team Providers Care Canopy Inspector Name Role Phone Marychuy Soto MD Primary Care Provider Encounter Details Date Type Department Care Team (Late st Contact Info) Description 08/04/2021 Scanned Documents [facility] Physician [facility] External Scan [address] [place] [address] Scanned, Document Social History Tobacco Use Types [...] documented as of this encounter Care Teams Canopy Inspector Relationship Specialty Start Date End Date Marychuy Soto MD [address] [place] [address] PCP - General Internal Medicine 03/14/20 documented as of this encounter
--- OUTSIDE RECORDS SUMMARY | 2025-02-05 10:40 | XMS_ITS | Encounter Summary ---
Author Organization [facility] Address [address] [place] [address] Care Team Providers Care Manager Behavior Name Role Phone Marychuy Soto MD Primary Care Provider [phone] Reason for Visit * Reason Onset Date Comments Authorization 07/13/2020 Dawit Encounter Details Date Type Department Care Team (Late st Contact Info) Description 07/13/2020 Telephone [facility] [address] [place] [address] Martha Harvey MA [address] [place], [place] [address] Authorization (Dawit) Social History Tobacco Use Types [...] as of this encounter Care Teams Manager Behavior Relationship Specialty Start Date End Date Marychuy Soto MD [address] [place] [address] PCP - General Internal Medicine 03/14/20 documented as of this encounter
--- OUTSIDE RECORDS SUMMARY | 2025-02-05 10:40 | XMS_ITS | Clinical Summary ---
Author Organization [facility] Address [address] [place] [address] Care Team Providers Care Washing Machine Loader Name Role Phone Unavailable Primary Care Provider [...] = N/A Late transfer of care from [facility] [x] Intake labs reviewed by: Date: Rh [...] the last 3 months, has th e [employer], gas, oil or water company threatened to [...]
--- OUTSIDE RECORDS SUMMARY | 2025-02-05 10:40 | XMS_ITS | Encounter Summary ---
Author Organization [facility] Address [address] [place] [address] Care Team Providers Care Software Requirements Engineer Name Role Phone Stephanie Espitia APN Primary Care Provider Marychuy Soto MD Primary Care Provider [phone] Encounter Details Date Type Department Care Team (Late st Contact Info) Description 09/03/2018 Scanned Documents [facility] Physician [facility] External Scan [address] [place] [address] Scanned, Document Social History Tobacco Use Types [...] documented as of this encounter Care Teams Software Requirements Engineer Relationship Specialty Start Date End Date Stephanie Espitia APN [address] [place] [address] PCP - General Internal Medicine 09/18/17 03/13/20 Marychuy Soto MD [address] [place] [address] PCP - General Internal Medicine 03/14/20 documented as of this encounter
--- OUTSIDE RECORDS SUMMARY | 2025-02-05 10:40 | XMS_ITS | Clinical Summary ---
Author Organization [facility] Address [address] [place] [address] Care Team Providers Care Armored Machine Operator Name Role Phone Marychuy Soto MD Primary Care Provider [phone] Allergies Active Allergy Reactions Criticality Noted Date [...] Health Maintenance Due Date Last Done Comments MMR Vaccines (1 of 1 - Standard series) 1988 Hepatitis B Vaccines (1 of 3 - 19+ 3-dose series) 2006 HPV Vaccines (1 - 3-dose SCDM series) 2014 Depression Screening 10/25/2023 07/25/2023, 06/15/2022, 03/02/2022, Additional history exists Annual Physical Exam 07/24/2024 07/25/2023, 07/25/2023, 03/08/2021, Additional history exists COVID-19 Vaccine ( season) 2025 02/01/2021, 05/13/2020, 04/22/2020 Flu Vaccine (#1) 01/04/2025 03/11/2023, , 04/09/2022, Additional history exists Cervical Cancer Screening 07/24/20262023, 04/03/2022, 09/14/2021, Additional history exists Tetanus / Tdap Shot 11/09/2031 11/08/2021 Zoster Vaccines (1 of 2) 2037 RSV Vaccines (1 - 1-dose 75+ series) 2062 Hepatitis C Antibody Screen Completed 01/10/2021 Hepatitis A Vaccines Aged Out No long er eligible based on patient's age to complete this topic Pneumococcal Vaccine: Pediatrics (0 to 5 Years) [...] pap HPV Plus (07/25/2023 2:24 PM EDT) Pathologist [facility] NASCAR PIT CREW PERSON Cytology Comment See attached report 07/30/2023 7:28 AM EDT [facility] Liquid-based preparation technique (qualifier value) (Thin prep pap) Collection / Unknown 07/25/2023 2:24 PM EDT 07/25/2023 2:25 PM EDT us Marychuy Soto MD PATHOLOGY/CYTOLOGY ORDERABLES Fi nal Result [address] [address] * Hepatitis C Antibody (01/10/2021 2:36 PM EDT) Hep C Ab Nonreactive Nonreactive 01/10/2021 7:15 PM EDT [facility] Hep C Ratio 0.15 <=0.80 RATIO 01/10/2021 7:15 PM EDT [facility] Blood Venipuncture / Unknown 01/10/2021 2:36 PM EDT 01/10/2021 2:36 PM EDT us Lily Huerta APN IMMUNOLOGY ORDERABLES Griselda yu Result [facility] [address] [place] [address] from Last 3 Months or Most Recently Relevant to Health Maintenance Insurance PPO Advance Directives * Full Code (Latest Code Status on File) Date Activated Date Inactivated Comments 01/14/2022 11:17 PM 01/15/2022 9:20 AM Care Teams Armored Machine Operator Relationship Specialty Start Date End Date Marychuy Soto MD [address] [place] [address] PCP - General Internal Medicine 03/14/20
--- OUTSIDE RECORDS SUMMARY | 2025-02-05 10:40 | XMS_ITS | Encounter Summary ---
Author Organization [facility] Address [address] [place] [address] Care Team Providers Care Textile Coating Machine Operator Name Role Phone Marychuy Soto MD Primary Care Provider [phone] Reason for Visit * Reason Onset Date Comments Requesting appt 05/15/2023 Encounter Details Date Type Department Care Team (Late st Contact Info) Description 05/15/2023 Telephone [facility] [address] [address] Marychuy Soto MD [address] [place] [address] Requesting appt Social History Tobacco Use [...] before office hours. * Telephone Encounter - Ekllie S Von - 05/15/2023 4:[address] Soto, Pt hasn't seen you since jun 2020. Shall I schedule with you again or shall I offer another provider. She's only 37 * Telephone Encounter - Melba Wild - 05/15/2023 4:31 PM EST Patient is calling requesting CPX appt with Dr Soto. Last seen 06/13/20 please review and call back. PT #[phone] documented in this encounter Plan of Treatment Not on file documented as of this encounter Visit Diagnoses Not on filedocumented in this encounter Care Teams Textile Coating Machine Operator Relationship Specialty Start Date End Date Marychuy Soto MD [address] [place] [address] PCP - General Internal Medicine 03/14/20 documented as of this encounter
--- OUTSIDE RECORDS SUMMARY | 2025-02-05 10:40 | XMS_ITS | Encounter Summary ---
Author Organization [facility] Address [address] [place] [address] Care Team Providers Care Montessori Lead Teacher Name Role Phone Marychuy Soto MD Primary Care Provider [phone] Reason for Visit * Reason Onset Date Comments paragard 07/11/2020 needed update on shipment. Encounter Details Date Type Department Care Team (Late st Contact Info) Description 07/11/2020 Telephone [facility] Gynecology Maribeth Hurst [address] [place] [address] Martha Harvey MA [address] [place] [address] paragard (needed update on shipment.) Social History [...] documented as of this encounter Care Teams Montessori Lead Teacher Relationship Specialty Start Date End Date Marychuy Soto MD [address] [place] [address] PCP - General Internal Medicine 03/14/20 documented as of this encounter
--- OUTSIDE RECORDS SUMMARY | 2025-02-05 10:40 | XMS_ITS | Encounter Summary ---
Author Organization [facility] Address [address] [place] [address] Care Team Providers Care Spring Crater Name Role Phone Marychuy Soto MD Primary Care Provider [phone] Encounter Details Date Type Department Care Team (Late st Contact Info) Description 08/04/2021 Scanned Documents [facility] Physician [facility] External Scan [address] [place] [address] Scanned, Document Social History Tobacco Use Types [...] documented as of this encounter Care Teams Spring Crater Relationship Specialty Start Date End Date Marychuy Soto MD [address] [place] [address] PCP - General Internal Medicine 03/14/20 documented as of this encounter
--- OUTSIDE RECORDS SUMMARY | 2025-02-05 10:40 | XMS_ITS | Encounter Summary ---
Author Organization [facility] Address [address] [place] [address] Care Team Providers Care Postdoctoral Research Associate Name Role Phone Marychuy Soto MD Primary Care Provider [phone] Encounter Details Date Type Department Care Team (Late st Contact Info) Description 01/11/2022 Scanned Documents [facility] Physician [facility] External Scan [address] [place] [address] Scanned, Document Social History Tobacco Use Types [...] documented as of this encounter Care Teams Postdoctoral Research Associate Relationship Specialty Start Date End Date Marychuy Soto MD [address] [place] [address] PCP - General Internal Medicine 03/14/20 documented as of this encounter
[2025-02-05 13:51] LABS: MANUAL DIFF FLAG NO
[2025-02-05 14:01] LABS: Hematocrit 35.5 % (37.0-47.0); Hemoglobin 11.7 g/dl (12.0-16.0); Imm Gran Abs Auto 0.01 X10*3/uL (0.00-0.03); Imm Gran Pct Auto 0.2 % (0.0-0.4); Lymphocytes Absolute Auto 2.0 X10*3/uL (1.2-4.9); Mean Corpuscular HGB Conc 33.0 g/dl (31.0-35.0); Mean Corpuscular Hemoglobin 29.4 pg (27.0-33.0); Mean Corpuscular Volume 89.2 fL (80.0-98.0); NRBC Abs Auto 0.000 X10*3/uL (0.0-0.012); NRBC Pct Auto 0.0 /100WBC (0.0-0.2); Platelet Count 320 X10*3/uL (160-400); Red Blood Count 3.98 X10*6/uL (4.20-5.50); White Blood Count 6.1 X10*3/uL (4.8-10.8)
[2025-02-05 14:30] LABS: Alanine Aminotransferase 13 U/L (0-31); Albumin Level 4.1 g/dL (3.5-5.0); Alkaline Phosphatase 57 U/L (39-117); Anion Gap 10 (12-20); Aspartate Amino Transferase 28 U/L (5-31); Blood Urea Nitrogen 11 mg/dL (9-16); Calcium 8.8 mg/dL (8.4-10.2); Carbon Dioxide 25 mmol/L (22-29); Chloride 106 mmol/L (96-108); Cholesterol 171 mg/dL (<200); Estimated Glomerular Filt Rate > 60; HDL Cholesterol 53 mg/dL (>40); Potassium 4.0 mmol/L (3.3-5.1); Sodium 137 mmol/L (135-145); Total Protein 7.7 g/dL (6.5-8.0); Triglycerides 58 mg/dL (<150)
[2025-02-06 04:28] LABS: HBS Num1 76.79 mIU/mL (0-7.99); HBsAGNum1 0.36 S/CO (0.00-0.99); HIV Num 1 0.07 S/CO (0.00-0.99); Hepatitis B Surface Antigen Negative (Negative); ~HepC Num1 0.13 S/CO (0.00-0.79); ~Hepatitis B Surface Antibody REACTIVE (Nonreactive); ~Hepatitis C Antibody Nonreactive (Nonreactive)
[2025-02-12 13:44] LABS: VITAMIN D (1,25 OH) D3 43 pg/mL; Vit D (1,25-Dihydroxy) Total 43 pg/mL (18-72); Vitamin D (1,25 OH) D2 <8 pg/mL
== END 2025-02-05 09:55 | disposition home or self-care (01) ==
LOC: HO.HKASLDS 09:54
PROVIDERS: PCP Student in an Organized Health Care Education/Training Program; Visit Provider Student in an Organized Health Care Education/Training Program
DX: Z13.89 Encounter for screening for other disorder (principal); Z76.89 Persons encountering health services in other specified circumstances; Z13.6 Encounter for screening for cardiovascular disorders; Z13.1 Encounter for screening for diabetes mellitus; Z13.21 Encounter for screening for nutritional disorder; Z11.4 Encounter for screening for human immunodeficiency virus [HIV]
CPT/HCPCS: 36415; 80053; 80061; 82652; 83036; 85025; 86706; 86803; 87340; 87389

== ENCOUNTER → 2025-04-21 08:08 | Outpatient (BNV) | payer OTHER, SELFPAY | PROVIDERS: PCP Student in an Organized Health Care Education/Training Program; Visit Provider Radiology Diagnostic Radiology | DX: M51.26 Other intervertebral disc displacement, lumbar region (principal); M47.816 Spondylosis without myelopathy or radiculopathy, lumbar region; M51.369 Other intervertebral disc degeneration, lumbar region without mention of lumbar back pain or lower extremity pain | CPT/HCPCS: 72148 ==

== ENCOUNTER 2025-04-21 08:10 | Outpatient (REF) | payer OTHER, SELFPAY ==
--- NOTE | ~2025-04-21 | MR_ITS ---
EXAMINATION: MR LUMBAR SPINE WITHOUT CONTRAST CLINICAL INFORMATION: M 51.26. Other intervertebral disc displacement, lumbar region. Low back pain. COMPARISON: Correlated to x-ray dated November 18, 2024. TECHNIQUE: MRI of the lumbar spine was obtained using routine sequences without contrast. FINDINGS: Last rib-bearing vertebra labeled T12. Bone marrow STIR signal within the vertebral body of L4 and the anterior aspect and superior endplate of the L5. Disc desiccation at L4-5 and to a lesser extent L3-4. Focal hyperintense T2 and the posterior intervertebral disc L4-L5 likely focal annular fissure. Small Schmorl nodes in the endplates of T12 and T11. 1 mm retrolisthesis at L4-5. Conus medullaris ends at pedicle of L1 with normal signal. Decreased signal in all sequences correspond to the sclerotic/blastic lesion at L4. T11-12: No disc herniation. No neuroforamina stenosis. T12-L1: Broad-based disc bulging. No central spinal canal or neuroforamina stenosis. L1-2: Bulging. Facet joint and ligamentum flavum hypertrophy. No central spinal canal or neuroforamina stenosis. L2-3: Broad-based disc bulging. Facet joint hypertrophy. Reduced AP diameter thecal sac. L3-4: Broad-based disc bulging. Facet joint and ligamentum flavum atrophy. Meninges diameter thecal sac and neuroforamina without compression. L4-5: Central broad-based herniated disc resulting in ventral deformity of the thecal sac and abutting the L5 nerve root on the lateral recesses. Bilateral facet joint hypertrophy. Bilateral neuroforamina narrowing encroaching the L4 nerve roots. L5-S1: Broad-based disc bulging. Facet joint hypertrophy. No central spinal canal stenosis. Bilateral neuroforamina narrowing likely encroaching the L5 nerve roots. No prevertebral compartment hematoma, mass or fluid collections. 1.5 cm cystic lesion, left kidney.. MR/MR lumbar spine wo con IMPRESSION: Multilevel spondylosis pronounced at L4-5 and to a lesser extent L3-4 and L5 likely encroaching the neural elements at L4-5 and to a lesser extent L5-S1 and L3-4. Central broad-based herniated disc at L4-5 abutting the L5 nerve roots. Acute inflammatory degenerative changes at L4-5. Sclerotic lesion, L4. No specific. Electronically signed by: John Whittaker MD 04/21/2025 09:08 AM EST
--- OUTSIDE RECORDS SUMMARY | 2025-04-21 08:15 | XMS_ITS | Encounter Summary ---
Author Organization [facility] Address [address] [place] [address] Care Team Providers Care Model Making Supervisor Name Role Phone Marychuy Soto MD Primary Care Provider [phone] Encounter Details Date Type Department Care Team (Late st Contact Info) Description 09/25/2021 Scanned Documents [facility] Physician [facility] External Scan [address] [place] [address] Scanned, Document Social History Tobacco Use Types [...] documented as of this encounter Care Teams Model Making Supervisor Relationship Specialty Start Date End Date Marychuy Soto MD [address] [place] [address] PCP - General Internal Medicine 03/14/20 documented as of this encounter
--- OUTSIDE RECORDS SUMMARY | 2025-04-21 08:15 | XMS_ITS | Encounter Summary ---
Author Organization [facility] Address [address] [place] [address] Care Team Providers Care Forensic Identification Specialist Name Role Phone Marychuy Soto MD Primary Care Provider [phone] Encounter Details Date Type Department Care Team (Late st Contact Info) Description 10/10/2021 Scanned Documents [facility] Physician [facility] External Scan [address] [place] [address] Scanned, Document Social History Tobacco Use Types [...] documented as of this encounter Functional Status documented as of this encounter Mental Status documented in this encounter Plan of Treatment Not on file documented as of this encounter Procedures Procedure Name Priority Date/Time Associated Diagnosis Comments MFM BASIC ULTRASOUND STUDIES 10/10/2021 9:31 AM EDT documented in this encounter Results * MFM BASIC ULTRASOUND STUDIES (10/10/2021 9:31 AM EDT) us Document Scanned OB R4 US ORDERABLES Final Resul t documented in this encounter Visit Diagnoses Not on filedocumented in this encounter Additional Health Concerns Infection Onset Date Last Indicated Resolved Time Covid-19 Screening 01/14/2022 01/14/2022 12:14 AM EDT documented as of this encounter Care Teams Forensic Identification Specialist Relationship Specialty Start Date End Date Marychuy Soto MD [address] [place] [address] PCP - General Internal Medicine 03/14/20 documented as of this encounter
--- OUTSIDE RECORDS SUMMARY | 2025-04-21 08:15 | XMS_ITS | Encounter Summary ---
Author Organization [facility] Address [address] [place] [address] Care Team Providers Care Retail Commission Sales Associate Name Role Phone Marychuy Soto MD Primary Care Provider [phone] Encounter Details Date Type Department Care Team (Late st Contact Info) Description 09/07/2021 Scanned Documents [facility] Physician [facility] External Scan [address] [place] [address] Scanned, Document Social History Tobacco Use Types [...] documented as of this encounter Care Teams Retail Commission Sales Associate Relationship Specialty Start Date End Date Marychuy Soto MD [address] [place] [address] PCP - General Internal Medicine 03/14/20 documented as of this encounter
--- OUTSIDE RECORDS SUMMARY | 2025-04-21 08:15 | XMS_ITS | Encounter Summary ---
Author Organization [facility] Address [address] [place] [address] Care Team Providers Care Manufacturing Engineering Director Name Role Phone Marychuy Soto MD Primary Care Provider Encounter Details Date Type Department Care Team (Late st Contact Info) Description 11/23/2021 Scanned Documents [facility] Physician [facility] External Scan [address] [place] [address] Scanned, Document Social History Tobacco Use Types [...] documented as of this encounter Care Teams Manufacturing Engineering Director Relationship Specialty Start Date End Date Marychuy Soto MD [address] [place] [address] PCP - General Internal Medicine 03/14/20 documented as of this encounter
--- OUTSIDE RECORDS SUMMARY | 2025-04-21 08:15 | XMS_ITS | Encounter Summary ---
Author Organization [facility] Address [address] [place] [address] Care Team Providers Care Him Director Name Role Phone Marychuy Soto MD Primary Care Provider [phone] Encounter Details Date Type Department Care Team (Late st Contact Info) Description 08/22/2021 Scanned Documents [facility] Physician [facility] External Scan [address] [place] [address] Scanned, Document Social History Tobacco Use Types [...] documented as of this encounter Care Teams Him Director Relationship Specialty Start Date End Date Marychuy Soto MD [address] [place] [address] PCP - General Internal Medicine 03/14/20 documented as of this encounter
--- OUTSIDE RECORDS SUMMARY | 2025-04-21 08:15 | XMS_ITS | Patient Health Record ---
Author Organization [facility] Address [address] [place] [address] Care Team Providers Care Audio/Visual Manager Name Role Phone Beth Tapia Unavailable [phone] Reason For Referral No Information Medications Medication [...] Test Test Name Order Date TRICHOMONAS VAGINALIS -(32492) 9 CT/GC - 51693 10/29/2018 Medical (General) History Medical History History ICD Code allergies 11/18/2018 Alcohol: No 11/18/2018 Drug Use: No 11/18/2018 Loratadine
--- OUTSIDE RECORDS SUMMARY | 2025-04-21 08:15 | XMS_ITS | Encounter Summary ---
Author Organization [facility] Address [address] [place] [address] Care Team Providers Care Refrigerator Car Icer Name Role Phone Marychuy Soto MD Primary Care Provider [phone] Encounter Details Date Type Department Care Team (Late st Contact Info) Description 08/28/2021 Scanned Documents [facility] Physician [facility] External Scan [address] [place] [address] Scanned, Document Social History Tobacco Use Types [...] documented as of this encounter Care Teams Refrigerator Car Icer Relationship Specialty Start Date End Date Marychuy Soto MD [address] [place] [address] PCP - General Internal Medicine 03/14/20 documented as of this encounter
--- OUTSIDE RECORDS SUMMARY | 2025-04-21 08:16 | XMS_ITS | Encounter Summary ---
Author Organization [facility] Address [address] [place] [address]. [place] [address] Care Team Providers Care Resin Coater Name Role Phone Marychuy Soto MD Primary Care Provider [phone] Reason for Visit * Reason Onset Date Comments paragard 07/11/2020 needed update on shipment. Encounter Details Date Type Department Care Team (Late st Contact Info) Description 07/11/2020 Telephone [facility] Physician [facility] - Gynecology at [place] [address] [place] [address] Martha Harvey MA [address] [place] [address] [facility] (needed update on shipment.) Social History Tobacco [...] documented as of this encounter Care Teams Resin Coater Relationship Specialty Start Date End Date Marychuy Soto MD [address] [place] [address] PCP - General Internal Medicine 03/14/20 documented as of this encounter
--- OUTSIDE RECORDS SUMMARY | 2025-04-21 08:16 | XMS_ITS | Encounter Summary ---
Author Organization [facility] Address [address] [place] [address] Care Team Providers Care Vest Presser Name Role Phone Marychuy Soto MD Primary Care Provider [phone] Encounter Details Date Type Department Care Team (Late st Contact Info) Description 08/04/2021 Scanned Documents [facility] Physician [facility] External Scan [address] [place] [address] Scanned, Document Social History Tobacco Use Types [...] documented as of this encounter Care Teams Vest Presser Relationship Specialty Start Date End Date Marychuy Soto MD [address] [place] [address] PCP - General Internal Medicine 03/14/20 documented as of this encounter
--- OUTSIDE RECORDS SUMMARY | 2025-04-21 08:16 | XMS_ITS | Clinical Summary ---
Author Organization [facility] Address [address] [place] [address] Care Team Providers Care Parks And Recreation Manager Name Role Phone Marychuy Soto MD Primary Care Provider [phone] Allergies Active Allergy Reactions Criticality Noted Date [...] - 19+ 3-dose series) 2006 HPV Vaccines (3 - 3-dose SCDM series) 03/06/2019 10/15/2018, 09/03/2018 Depression Screening 10/25/2023 07/25/2023, 06/15/2022, 03/02/2022, Additional [...] HPV Plus (07/25/2023 2:24 PM EDT) Pathologist [facility] IMMUNOCHEMIST Cytology Comment See attached report 07/30/2023 7:28 AM EDT [facility] Liquid-based preparation technique (qualifier value) (Thin prep pap) Collection / Unknown 07/25/2023 2:24 PM EDT 07/25/2023 2:25 PM EDT us Marychuy Soto MD PATHOLOGY/CYTOLOGY ORDERABLES Fi nal Result [address] [address] * Hepatitis C Antibody (01/10/2021 2:36 PM EDT) Pathologist [facility] Hep C Ab Nonreactive Nonreactive 01/10/2021 7:15 PM EDT [facility] Hep C Ratio 0.15 <=0.80 RATIO 01/10/2021 7:15 PM EDT [facility] Blood Venipuncture / Unknown 01/10/2021 2:36 PM EDT 01/10/2021 2:36 PM EDT us Lily Huerta APN IMMUNOLOGY ORDERABLES Griselda nicholas Result [facility] [address] [place] [address] from Last 3 Months or Most Recently Relevant to Health Maintenance Insurance PPO Advance Directives * Full Code (Latest Code Status on File) Date Activated Date Inactivated Comments 01/14/2022 11:17 PM 01/15/2022 9:20 AM Care Teams Parks And Recreation Manager Relationship Specialty Start Date End Date Marychuy Soto MD [address] [place] [address] PCP - General Internal Medicine 03/14/20
--- OUTSIDE RECORDS SUMMARY | 2025-04-21 08:16 | XMS_ITS | Encounter Summary ---
Author Organization [facility] Address [address] [place] [address] Care Team Providers Care Telegraph Printer Mechanic Name Role Phone Marychuy Soto MD Primary Care Provider [phone] Encounter Details Date Type Department Care Team (Late st Contact Info) Description 01/11/2022 Scanned Documents [facility] Physician [facility] External Scan [address] [place] [address] Scanned, Document Social History Tobacco Use Types [...] documented as of this encounter Care Teams Telegraph Printer Mechanic Relationship Specialty Start Date End Date Marychuy Soto MD [address] [place] [address] PCP - General Internal Medicine 03/14/20 documented as of this encounter
--- OUTSIDE RECORDS SUMMARY | 2025-04-21 08:16 | XMS_ITS | Encounter Summary ---
Author Organization [facility] Address [address] [place] [address] Care Team Providers Care Allergist/Pediatric Pulmonologist Name Role Phone Marychuy Soto MD Primary Care Provider [phone] Encounter Details Date Type Department Care Team (Late st Contact Info) Description 02/26/2022 Scanned Documents [facility] Physician [facility] External Scan [address] [place] [address] Scanned, Document Social History Tobacco Use Types [...] on filedocumented in this encounter Care Teams Allergist/Pediatric Pulmonologist Relationship Specialty Start Date End Date Marychuy Soto MD [address] [place] [address] PCP - General Internal Medicine 03/14/20 documented as of this encounter
--- OUTSIDE RECORDS SUMMARY | 2025-04-21 08:16 | XMS_ITS | Encounter Summary ---
Author Organization [facility] Address [address] [place] [address] Care Team Providers Care Egg Producer Name Role Phone Marychuy Soto MD Primary Care Provider Encounter Details Date Type Department Care Team (Late st Contact Info) Description 08/04/2021 Scanned Documents [facility] Physician [facility] External Scan [address] [place] [address] Scanned, Document Social History Tobacco Use Types [...] documented as of this encounter Care Teams Egg Producer Relationship Specialty Start Date End Date Marychuy Soto MD [address] [place] [address] PCP - General Internal Medicine 03/14/20 documented as of this encounter
--- OUTSIDE RECORDS SUMMARY | 2025-04-21 08:16 | XMS_ITS | Clinical Summary ---
Author Organization [facility] Address [address] [place] [address] Care Team Providers Care Solid Waste Collection Worker Name Role Phone Unavailable Primary Care Provider [...] = N/A Late transfer of care from [facility] [x] Intake labs reviewed by: Date: [...] the last 3 months, has th e [employer], gas, oil or water company threatened to shut off services to your home? No 11/08/2021 Housing Stability Answer Date Recorded Are you worried that in the next 2 months, you may not have a safe or stable place to live? (eviction, being kicked out, homelessness) No 11/08/2021 Housing Adequacy Answer Date Recorded Are you worried that the llait ce you are living now is making [...]
--- OUTSIDE RECORDS SUMMARY | 2025-04-21 08:16 | XMS_ITS | Encounter Summary ---
Author Organization [facility] Address [address] [place] [address] Care Team Providers Care Food Cooking Machine Operator Name Role Phone Stephanie Espitia APN Primary Care Provider Marychuy Soto MD Primary Care Provider [phone] Encounter Details Date Type Department Care Team (Late st Contact Info) Description 09/03/2018 Scanned Documents [facility] Physician [facility] External Scan [address] [place] [address] Scanned, Document Social History Tobacco Use Types [...] documented as of this encounter Care Teams Food Cooking Machine Operator Relationship Specialty Start Date End Date Stephanie Espitia APN [address] [place] [address] PCP - General Internal Medicine 09/18/17 03/13/20 Marychuy Soto MD [address] [place] [address] PCP - General Internal Medicine 03/14/20 documented as of this encounter
--- OUTSIDE RECORDS SUMMARY | 2025-04-21 08:16 | XMS_ITS | Encounter Summary ---
Author Organization [facility] Address [address] [place] [address] Care Team Providers Care Completion Supervisor Name Role Phone Marychuy Soto MD Primary Care Provider [phone] Encounter Details Date Type Department Care Team (Late st Contact Info) Description 01/05/2022 Scanned Documents [facility] Physician [facility] External Scan [address] [place] [address] Scanned, Document Social History Tobacco Use Types [...] documented as of this encounter Care Teams Completion Supervisor Relationship Specialty Start Date End Date Marychuy Soto MD [address] [place] [address] PCP - General Internal Medicine 03/14/20 documented as of this encounter
--- OUTSIDE RECORDS SUMMARY | 2025-04-21 08:16 | XMS_ITS | Encounter Summary ---
Author Organization [facility] Address [address] [place] [address] Care Team Providers Care Funeral Home Assistant Name Role Phone Marychuy Soto MD Primary Care Provider [phone] Reason for Visit * Reason Onset Date Comments Authorization 07/13/2020 Dawit Encounter Details Date Type Department Care Team (Late st Contact Info) Description 07/13/2020 Telephone [facility] Physician [facility] - Gynecology at [place] [address] [place] [address] Martha Harvey MA [address] [place], [place] [address] Authorization (Dawit) Social History Tobacco Use Types [...] documented as of this encounter Care Teams Funeral Home Assistant Relationship Specialty Start Date End Date Marychuy Soto MD [address] [place] [address] PCP - General Internal Medicine 03/14/20 documented as of this encounter
--- OUTSIDE RECORDS SUMMARY | 2025-04-21 08:16 | XMS_ITS | Encounter Summary ---
Author Organization [facility] Address [address] [place], [place] [address] Care Team Providers Care Subscription Clerk Name Role Phone Marychuy Soto MD Primary Care Provider Reason for Visit * Reason Onset Date Comments Requesting appt 05/15/2023 Encounter Details Date Type Department Care Team (Late st Contact Info) Description 05/15/2023 Telephone [facility] - [facility] at [address] [address] Marychuy Soto MD [address] [place] [address] Requesting appt Social History Tobacco Use [...] Goldsmith, RN documented as of this encounter Miscellaneous [...] 06/13/20 please review and call back. PT #[phone] documented in this encounter Plan of Treatment Not on file documented as of this encounter Visit Diagnoses Not on filedocumented in this encounter Care Teams Subscription Clerk Relationship Specialty Start Date End Date Marychuy Soto MD [address] [place] [address] PCP - General Internal Medicine 03/14/20 documented as of this encounter
--- OUTSIDE RECORDS SUMMARY | 2025-04-21 08:16 | XMS_ITS | Encounter Summary ---
Author Organization [facility] Address [address] [place] [address] Care Team Providers Care Laborer Poultry Hatchery Name Role Phone Marychuy Soto MD Primary Care Provider [phone] Encounter Details Date Type Department Care Team (Late st Contact Info) Description 07/19/2021 Scanned Documents [facility] Physician [facility] External Scan [address] [place] [address] Scanned, Document Social History Tobacco Use Types [...] documented as of this encounter Care Teams Laborer Poultry Hatchery Relationship Specialty Start Date End Date Marychuy Soto MD [address] [place] [address] PCP - General Internal Medicine 03/14/20 documented as of this encounter
== END 2025-04-21 08:11 ==
LOC: HO.MRI 08:10
PROVIDERS: PCP Student in an Organized Health Care Education/Training Program; Visit Provider Physical Medicine & Rehabilitation
DX: M51.27 Other intervertebral disc displacement, lumbosacral region (principal)
CPT/HCPCS: 72148

== ENCOUNTER 2025-04-22 11:38 | Outpatient (AMB) | payer OTHER, SELFPAY ==
--- NOTE | 2025-04-22 11:39 | MHC.OFFVIS ---
Intake Visit Reasons: [facility]EL- Lumbar Spine MRI Review, 04/21/25 PER Intake Note: Brittany is a 39 year old female who presents today as a [facility] visit for her MRI Review of the Lumbar Spine, 04/21/25. Allergies No Known Allergies Allergy (Verified 01/18/25 11:07) PFSH Family History (Updated 01/18/25 @ 11:15 by Oumar Phillips MA) Father No problems noted. Mother Hypertension Papillary thyroid carcinoma Social History (Updated 01/18/25 @ 11:16 by Oumar Phillips MA) Housing: Apartment Alcohol intake: current Alcohol intake frequency: holidays/special occasions only Patient Tobacco Use Status: Never used Tobacco service: No Current occupational status: employed Cognitive needs: No Hearing needs: No Vision needs: No Telehealth Telehealth Telehealth Platform: Telephone Location of provider rendering services: practice address Location of patient: other Patient Identification confirmed using: Name, : Yes Telehealth method: video Patient verbally consented to treatment: Yes Patient verbally consented to billing insurance company: Yes Patient informed of any privacy concerns related to visit: Yes Minutes spent on Phone/Video with Pt.: 15 Results Reviewed Results Reviewed: Ordering Physician: Giuliana Up Date of Service: 04/21/25 Procedure(s): MR lumbar spine wo con Accession Number(s): [id number] cc: Rick Chang MD; Giuliana Up~ Reason for Exam: M51.26 - Other intervertebral disc displacement, lumbar region ADDENDUM ADDENDUM #1 No bone marrow signal within the sacroiliac joints. Probably sclerotic lesion in the posterior left iliac bone. No bone marrow STIR signal abnormality in the sacrococcyx region Electronically signed by: John Whittaker MD 04/21/2025 12:27 PM [facility] Addendum Dictated By: John Tripp MD Addendum Signed By: <Electronically signed by John Tripp MD in OV> 04/21/25 1227 Addendum Cosigned By: DD/ TD/TT: 04/21/25 EXAMINATION: MR LUMBAR SPINE WITHOUT CONTRAST CLINICAL INFORMATION: M 51.26. Other intervertebral disc displacement, lumbar region. Low back pain. COMPARISON: Correlated to x-ray dated November 18, 2024. TECHNIQUE: MRI of the lumbar spine was obtained using routine sequences without contrast. FINDINGS: Last rib-bearing vertebra labeled T12. Bone marrow STIR signal within the vertebral body of L4 and the anterior aspect and superior endplate of the L5. Disc desiccation at L4-5 and to a lesser extent L3-4. Focal hyperintense T2 and the posterior intervertebral disc L4-L5 likely focal annular fissure. Small Schmorl nodes in the endplates of T12 and T11. 1 mm retrolisthesis at L4-5. Conus medullaris ends at pedicle of L1 with normal signal. Decreased signal in all sequences correspond to the sclerotic/blastic lesion at L4. T11-12: No disc herniation. No neuroforamina stenosis. T12-L1: Broad-based disc bulging. No central spinal canal or neuroforamina stenosis. L1-2: Bulging. Facet joint and ligamentum flavum hypertrophy. No central spinal canal or neuroforamina stenosis. L2-3: Broad-based disc bulging. Facet joint hypertrophy. Reduced AP diameter thecal sac. L3-4: Broad-based disc bulging. Facet joint and ligamentum flavum atrophy. Meninges diameter thecal sac and neuroforamina without compression. L4-5: Central broad-based herniated disc resulting in ventral deformity of the thecal sac and abutting the L5 nerve root on the lateral recesses. Bilateral facet joint hypertrophy. Bilateral neuroforamina narrowing encroaching the L4 nerve roots. L5-S1: Broad-based disc bulging. Facet joint hypertrophy. No central spinal canal stenosis. Bilateral neuroforamina narrowing likely encroaching the L5 nerve roots. No prevertebral compartment hematoma, mass or fluid collections. 1.5 cm cystic lesion, left kidney.. MR/MR lumbar spine wo con IMPRESSION: Multilevel spondylosis pronounced at L4-5 and to a lesser extent L3-4 and L5 likely encroaching the neural elements at L4-5 and to a lesser extent L5-S1 and L3-4. Central broad-based herniated disc at L4-5 abutting the L5 nerve roots. Acute inflammatory degenerative changes at L4-5. Sclerotic lesion, L4. No specific. Electronically signed by: John Whittaker MD 04/21/2025 09:08 AM EST RP Assessment & Plan Assessment & Plan (1) Lumbar disc herniation: Code(s): M51.26 - Other intervertebral disc displacement, lumbar region Category: Medical (2) Sacroiliac joint dysfunction of both sides: Code(s): M53.3 - Sacrococcygeal disorders, not elsewhere classified Category: Medical Plan Chronic recurrent lower back pain, initially thought to be bilateral SI joint, severe episodes started in October. We looked at lumbar MRI images today. L4-5 has a notable broad-based disc bulge but we can also see that the disc protrudes centrally then to the right side, very close to the L4 nerve root and perhaps the L5 nerve root as well. Does PA's also noted at L3-4. Overall she is 70% better, radicular symptoms are much better compared to last November. Although admittedly she is not back to her usual functional level as compared to prior onset of pain. We both agreed that there is no urgency or indication for referral to neurosurgery as of now. I did offer referral to Dr. Malin for trial of L4-5 interlaminar epidural injection. She feels optimistic that she we will continue to get better with guided physical therapy, now that we have the results from the lumbar MRI. Work on lumbar strength and how to not exacerbate radicular symptoms. Still continue to work on SI joint dysfunction, which now appears to be more a secondary biomechanical issue. Continue PT for the next 3-6 months. If really not improved, then she will consider injection. Assessment and plan discussed with patient, and patient was agreeable. All questions were answered thoroughly. Giuliana Stringer MD, MORGAN Board Certified, [place] [employer] and Rehabilitation (ABPMR) Board Certified, [place] Board of Electrodiagnostic Medicine (ABEM) Coding Level of Care Code Tele Est Pt Level 3 (21717) Diagnoses Lumbar disc herniation M51.26 Sacroiliac joint dysfunction of both sides M53.3
--- OUTSIDE RECORDS SUMMARY | 2025-04-22 15:20 | XMS_ITS | Encounter Summary ---
Author Organization [facility] Address [address] [place] [address] Care Team Providers Care Parking Lot Attendant Name Role Phone Marychuy Soto MD Primary Care Provider Encounter Details Date Type Department Care Team (Late st Contact Info) Description 11/23/2021 Scanned Documents [facility] Physician [facility] External Scan [address] [place] [address] Scanned, Document Social History Tobacco Use Types [...] documented as of this encounter Care Teams Parking Lot Attendant Relationship Specialty Start Date End Date Marychuy Soto MD [address] [place] [address] PCP - General Internal Medicine 03/14/20 documented as of this encounter
--- OUTSIDE RECORDS SUMMARY | 2025-04-22 15:20 | XMS_ITS | Patient Health Record ---
Author Organization [facility] Address [address] [facility] [address] [place] [address] Care Team Providers Care Online Communications Manager Name Role Phone Beth Tapia Unavailable [phone] Reason For Referral No Information Medications Medication [...] Test Test Name Order Date TRICHOMONAS VAGINALIS -(01774) 9 CT/GC - 23722 10/29/2018 Medical (General) History Medical History History ICD Code allergies 11/18/2018 Alcohol: No 11/18/2018 Drug Use: No 11/18/2018 Loratadine
--- OUTSIDE RECORDS SUMMARY | 2025-04-22 15:20 | XMS_ITS | Encounter Summary ---
Author Organization [facility] Address [address] [place] [address] Care Team Providers Care Emery Grinder Name Role Phone Marychuy Soto MD Primary Care Provider [phone] Encounter Details Date Type Department Care Team (Late st Contact Info) Description 10/10/2021 Scanned Documents [facility] Physician [facility] External Scan [address] [place] [address] Scanned, Document Social History Tobacco Use Types [...] documented as of this encounter Care Teams Emery Grinder Relationship Specialty Start Date End Date Marychuy Soto MD [address] [place] [address] PCP - General Internal Medicine 03/14/20 documented as of this encounter
--- OUTSIDE RECORDS SUMMARY | 2025-04-22 15:21 | XMS_ITS | Encounter Summary ---
Author Organization [facility] Address [address] [place] [address] Care Team Providers Care Dean Of Students Name Role Phone Marychuy Soto MD Primary Care Provider Encounter Details Date Type Department Care Team (Late st Contact Info) Description 01/05/2022 Scanned Documents [facility] Physician [facility] External Scan [address] [place] [address] Scanned, Document Social History Tobacco Use Types [...] documented as of this encounter Care Teams Dean Of Students Relationship Specialty Start Date End Date Marychuy Soto MD [address] [place] [address] PCP - General Internal Medicine 03/14/20 documented as of this encounter
--- OUTSIDE RECORDS SUMMARY | 2025-04-22 15:21 | XMS_ITS | Clinical Summary ---
Author Organization [facility] Address [address] [place] [address] Care Team Providers Care Brick And Block Mason Name Role Phone Unavailable Primary Care Provider [...] transfer of care from [facility] [x] Intake labs reviewed by: Date: [...] the last 3 months, has th e [employer], gas, oil or water company threatened to [...]
--- OUTSIDE RECORDS SUMMARY | 2025-04-22 15:21 | XMS_ITS | Encounter Summary ---
Author Organization [facility] Address [address] [place] [address] Care Team Providers Care Chronic Specialist Name Role Phone Marychuy Soto MD Primary Care Provider [phone] Reason for Visit * Reason Onset Date Comments paragard 07/11/2020 needed update on shipment. Encounter Details Date Type Department Care Team (Late st Contact Info) Description 07/11/2020 Telephone [facility] - Gynecology at [place] [address] [facility] [place] [place] [address] Martha Harvey MA [address] [place] [address] parabarrow neurological instituted (needed update on shipment.) Social History Tobacco [...] documented as of this encounter Care Teams Chronic Specialist Relationship Specialty Start Date End Date Marychuy Soto MD [address] [place] [address] PCP - General Internal Medicine 03/14/20 documented as of this encounter
--- OUTSIDE RECORDS SUMMARY | 2025-04-22 15:21 | XMS_ITS | Encounter Summary ---
Author Organization [facility] Address [address] [place] [address] Care Team Providers Care Drum Dyeing Machine Operator Name Role Phone Marychuy Soto MD Primary Care Provider [phone] Encounter Details Date Type Department Care Team (Late st Contact Info) Description 07/19/2021 Scanned Documents [facility] Physician [facility] External Scan [address] [place] [phone] Scanned, Document Social History Tobacco Use Types [...] documented as of this encounter Care Teams Drum Dyeing Machine Operator Relationship Specialty Start Date End Date Marychuy Soto MD [address] [place] [address] PCP - General Internal Medicine 03/14/20 documented as of this encounter
--- OUTSIDE RECORDS SUMMARY | 2025-04-22 15:21 | XMS_ITS | Encounter Summary ---
Author Organization [facility] Address [address] [place] [address] Care Team Providers Care Overhead Cleaner Maintainer Name Role Phone Marychuy Soto MD Primary Care Provider [phone] Encounter Details Date Type Department Care Team (Late st Contact Info) Description 08/22/2021 Scanned Documents [facility] Physician [facility] External Scan [address] [place] [address] Scanned, Document Social History Tobacco Use Types [...] documented as of this encounter Care Teams Overhead Cleaner Maintainer Relationship Specialty Start Date End Date Marychuy Soto MD [address] [place] [address] PCP - General Internal Medicine 03/14/20 documented as of this encounter
--- OUTSIDE RECORDS SUMMARY | 2025-04-22 15:21 | XMS_ITS | Encounter Summary ---
Author Organization [facility] Address [address] [place] [address] Care Team Providers Care Molder Trimmer Name Role Phone Marychuy Soto MD Primary Care Provider Encounter Details Date Type Department Care Team (Late st Contact Info) Description 08/04/2021 Scanned Documents [facility] Physician [facility] External Scan [address] [place] [address] Scanned, Document Social History Tobacco Use Types [...] documented as of this encounter Care Teams Molder Trimmer Relationship Specialty Start Date End Date Marychuy Soto MD [address] [place] [address] PCP - General Internal Medicine 03/14/20 documented as of this encounter
--- OUTSIDE RECORDS SUMMARY | 2025-04-22 15:21 | XMS_ITS | Encounter Summary ---
Author Organization [facility] Address [address] [place] [address] Care Team Providers Care Cellar Worker Name Role Phone Marychuy Soto MD Primary Care Provider [phone] Reason for Visit * Reason Onset Date Comments Authorization 07/13/2020 Dawit Encounter Details Date Type Department Care Team (Late st Contact Info) Description 07/13/2020 Telephone [facility] Physician [facility] - Gynecology at [address] [place] [address] Martha Harvey MA [address] [place] [phone] Authorization (Dawit) Social History Tobacco Use Types [...] documented as of this encounter Care Teams Cellar Worker Relationship Specialty Start Date End Date Marychuy Soto MD [address] [place] [address] PCP - General Internal Medicine 03/14/20 documented as of this encounter
--- OUTSIDE RECORDS SUMMARY | 2025-04-22 15:21 | XMS_ITS | Encounter Summary ---
Author Organization [facility] Address [address] [place] [address] Care Team Providers Care Health Center Manager Name Role Phone Marychuy Soto MD Primary Care Provider [phone] Encounter Details Date Type Department Care Team (Late st Contact Info) Description 08/04/[address] [facility] Physician [facility] External Scan [address] [place] [address] Scanned, Document Social History Tobacco Use Types [...] as of this encounter Care Teams Health Center Manager Relationship Specialty Start Date End Date Marychuy Soto MD [address] [place] [address] PCP - General Internal Medicine 03/14/20 documented as of this encounter
--- OUTSIDE RECORDS SUMMARY | 2025-04-22 15:21 | XMS_ITS | Encounter Summary ---
Author Organization [facility] Address [address] [place] [address] Care Team Providers Care Global Marketing Coordinator Name Role Phone Marychuy Soto MD Primary Care Provider [phone] Encounter Details Date Type Department Care Team (Late st Contact Info) Description 02/26/2022 Scanned Documents [facility] Physician [facility] External Scan [address] [place] [address] Scanned, Document Social History Tobacco Use Types [...] on filedocumented in this encounter Care Teams Global Marketing Coordinator Relationship Specialty Start Date End Date Marychuy Soto MD [address] [place] [address] PCP - General Internal Medicine 03/14/20 documented as of this encounter
--- OUTSIDE RECORDS SUMMARY | 2025-04-22 15:21 | XMS_ITS | Encounter Summary ---
Author Organization [facility] Address [address] [place] [address] Care Team Providers Care Coil Finisher Name Role Phone Stephanie Espitia APN Primary Care Provider Marychuy Soto MD Primary Care Provider [phone] Encounter Details Date Type Department Care Team (Late st Contact Info) Description 09/03/2018 Scanned Documents [facility] Physician [facility] External Scan [address] [place] [address] Scanned, Document Social History Tobacco Use Types [...] documented as of this encounter Care Teams Coil Finisher Relationship Specialty Start Date End Date Stephanie Espitia APN [address] [place] [address] PCP - General Internal Medicine 09/18/17 03/13/20 Marychuy Soto MD [address] [place] [address] PCP - General Internal Medicine 03/14/20 documented as of this encounter
--- OUTSIDE RECORDS SUMMARY | 2025-04-22 15:21 | XMS_ITS | Encounter Summary ---
Author Organization [facility] Address [address] [place] [address] Care Team Providers Care Cartoon Artist Name Role Phone Marychuy Soto MD Primary Care Provider [phone] Encounter Details Date Type Department Care Team (Late st Contact Info) Description 01/11/2022 Scanned Documents [facility] Physician [facility] External Scan [address] [place] [address] Scanned, Document Social History Tobacco Use Types [...] documented as of this encounter Care Teams Cartoon Artist Relationship Specialty Start Date End Date Marychuy Soto MD [address] [place] [address] PCP - General Internal Medicine 03/14/20 documented as of this encounter
--- OUTSIDE RECORDS SUMMARY | 2025-04-22 15:21 | XMS_ITS | Encounter Summary ---
Author Organization [facility] Address [address] [place] [address] Care Team Providers Care Retail Cashier Associate Name Role Phone Marychuy Soto MD Primary Care Provider [phone] Encounter Details Date Type Department Care Team (Late st Contact Info) Description 09/07/2021 Scanned Documents [facility] Physician [facility] External Scan [address] [place] [address] Scanned, Document Social History Tobacco Use Types [...] as of this encounter Care Teams Retail Cashier Associate Relationship Specialty Start Date End Date Marychuy Soto MD [address] [place] [address] PCP - General Internal Medicine 03/14/20 documented as of this encounter
--- OUTSIDE RECORDS SUMMARY | 2025-04-22 15:21 | XMS_ITS | Encounter Summary ---
Author Organization [facility] Address [address] [place] [address] Care Team Providers Care Recreation Assistant Name Role Phone Marychuy Soto MD Primary Care Provider [phone] Encounter Details Date Type Department Care Team (Late st Contact Info) Description 08/28/2021 Scanned Documents [facility] Physician [facility] External Scan [address] [place] [address] Scanned, Document Social History Tobacco Use Types [...] documented as of this encounter Care Teams Recreation Assistant Relationship Specialty Start Date End Date Marychuy Soto MD [address] [place] [address] PCP - General Internal Medicine 03/14/20 documented as of this encounter
--- OUTSIDE RECORDS SUMMARY | 2025-04-22 15:21 | XMS_ITS | Encounter Summary ---
Author Organization [facility] Address [address] [place] [address] Care Team Providers Care Ad Terminal Makeup Operator Name Role Phone Marychuy Soto MD Primary Care Provider [phone] Encounter Details Date Type Department Care Team (Late st Contact Info) Description 09/25/2021 Scanned Documents [facility] Physician [facility] External Scan [address] [place] [id number] Scanned, Document Social History Tobacco Use Types [...] documented as of this encounter Care Teams Ad Terminal Makeup Operator Relationship Specialty Start Date End Date Marychuy Soto MD [address] [place] [id number] PCP - General Internal Medicine 03/14/20 documented as of this encounter
--- OUTSIDE RECORDS SUMMARY | 2025-04-22 15:21 | XMS_ITS | Encounter Summary ---
Author Organization [facility] Address [address] [place] [id number] Care Team Providers Care Box Car Loader Name Role Phone Marychuy Soto MD Primary Care Provider [phone] Reason for Visit * Reason Onset Date Comments Requesting appt 05/15/2023 Encounter Details Date Type Department Care Team (Late st Contact Info) Description 05/15/2023 Telephone [facility] at [address] [phone] Marychuy Soto MD [address] [place] [phone] Requesting appt Social History Tobacco Use [...] 06/13/20 please review and call back. PT #[phone] documented in this encounter Plan of Treatment Not on file documented as of this encounter Visit Diagnoses Not on filedocumented in this encounter Care Teams Box Car Loader Relationship Specialty Start Date End Date Marychuy Soto MD [address] [place] [id number] PCP - General Internal Medicine 03/14/20 documented as of this encounter
--- OUTSIDE RECORDS SUMMARY | 2025-04-22 15:21 | XMS_ITS | Clinical Summary ---
Author Organization [facility] Address [address] [place] [address] Care Team Providers Care Grommet Machine Operator Name Role Phone Marychuy Soto MD Primary Care Provider [phone] Allergies Active Allergy Reactions Criticality Noted Date [...] doing good now. Natural Sister Alive Other polish descen t Paternal Aunt Paternal Grandfather Social [...] (07/25/2023 2:24 PM EDT) Pathologist [facility] HEAD RIGGER Cytology Comment See attached report 07/30/2023 7:[address] [facility] Liquid-based preparation technique (qualifier value) (Thin prep pap) Collection / Unknown 07/25/2023 2:24 PM EDT 07/25/2023 2:25 PM EDT us Marychuy Soto MD PATHOLOGY/CYTOLOGY ORDERABLES Fi nal Result [address] [address] * Hepatitis C Antibody (01/10/2021 2:36 PM EDT) Pathologist [facility] Hep C Ab Nonreactive Nonreactive 01/10/2021 7:15 PM EDT [facility] Hep C Ratio 0.15 <=0.80 RATIO 01/10/2021 7:15 PM EDT [facility] Blood Venipuncture / Unknown 01/10/2021 2:36 PM EDT 01/10/2021 2:36 PM EDT us Lily Huerta APN IMMUNOLOGY ORDERABLES Griselda nicholas Result [facility] [address] [place] [address] from Last 3 Months or Most Recently Relevant to Health Maintenance Insurance PPO Advance Directives * Full Code (Latest Code Status on File) Date Activated Date Inactivated Comments 01/14/2022 11:17 PM 01/15/2022 9:20 AM Care Teams Grommet Machine Operator Relationship Specialty Start Date End Date Marychuy Soto MD [address] [place] [id number] PCP - General Internal Medicine 03/14/20
== END 2025-04-22 11:59 | disposition home or self-care (01) ==
LOC: HO.HOS 11:38
PROVIDERS: PCP Student in an Organized Health Care Education/Training Program; Visit Provider Physical Medicine & Rehabilitation
DX: M51.26 Other intervertebral disc displacement, lumbar region (principal); M53.3 Sacrococcygeal disorders, not elsewhere classified
CPT/HCPCS: 99213